=== PATIENT | female | born 1940 ===

== ENCOUNTER 2018-08-17 19:17 | Emergency (ER) | payer MEDICARE, OTHER ==
[2018-08-17] MEDS ORDERED: Sodium Chloride 0.9% 10 ML Syringe FLUSH PRN (19:28)
[2018-08-17] MEDS ORDERED: Sodium Chloride 0.9% 2.5 ML Syringe FLUSH PRN (19:28)
[2018-08-17] MEDS ORDERED: Ondansetron 4 MG/2 ML SDV IVPUSH ONE (19:40)
[2018-08-17] MEDS ORDERED: Pantoprazole 40 MG Vial IVPUSH ONE (19:40)
[2018-08-17] MEDS ORDERED: Sodium Chloride 0.9% 1,000 ML IV ONE (19:40)
--- NOTE | 2018-08-17 19:44 | EDM.PDOC ---
ED HPI GENERAL MEDICAL PROBLEM - General Chief Complaint: Gastrointestinal Problem Stated Complaint: SICK TO STOMACH, VOMITING Time Seen by Provider: 08/17/18 19:28 - History of Present Illness INITIAL COMMENTS - FREE TEXT/NARRATIVE: HISTORY AND PHYSICAL: History of present illness: The patient is a 78-year-old female who follows at [facility] with Radha Vogt and has a history of hypertension as well as a cholecystectomy and appendectomy and presents with issues that started last evening. She said that last night she felt like her eyes were very blurry and she use artificial tears which made it better. She did not have a headache or dizziness and no vomiting but did have nausea with that. She said she didn't have any drainage or itchiness from her eyes and that she woke today and throughout the day she her nausea has increased. She says that after she eats she feels much more nauseated she is not having chest pain or shortness of breath or fevers. She has no urinary complaints and she says that she only had a very small bowel movement over the last 2 days. She has no significant GI history but does have the above surgeries. She says she feels a little bit bloated and she did not take anything [id number] for these symptoms. She says that the blurriness of her eyes comes and goes but is not persistent and she denies any neck or back pain. The patient says she's never had any colon issues and she actually did not vomit but came very close and had some gagging and dry heaving. On my history taking the patient is somewhat scattered and is not very direct in answering my questions so it is challenging to determine this sequence of events. She does say that all of her symptoms worsen after she eats anything so she has not eaten very much today at all and had not had much fluids. The patient denies any midline or lumbar back pain and has no flank pain Patient added later on a repeat evaluation that she does have kidney disease which she has aware of and is followed by her provider in the clinic Review of systems: As per history of present illness and below otherwise all systems reviewed and negative. Past medical history: As per history of present illness and as reviewed below otherwise noncontributory. Surgical history: As per history of present illness and as reviewed below otherwise noncontributory. Social history: No reported history of drug or alcohol abuse. Family history: As per history of present illness and as reviewed below otherwise noncontributory. Physical exam: General: Well-developed well-nourished overweight female who is nontoxic and vital signs are noted by me HEENT: Atraumatic, normocephalic, pupils reactive, sclerae are minimally injected and there is no drainage negative for conjunctival pallor or scleral icterus, mucous membranes tacky throat clear, neck supple, nontender, trachea midline. Lungs: Clear to auscultation, breath sounds equal bilaterally, chest nontender. Heart: S1S2, regular in rhythm no overt murmurs Abdomen: Soft, nondistended, nontender. Bowel sounds are very hypoactive and there is tympany on percussion of the upper abdomen without rebound or guarding. Negative for masses or hepatosplenomegaly. Negative for costovertebral tenderness. Pelvis: Stable nontender. Genitourinary: Deferred. Rectal: Deferred. Extremities: Atraumatic, negative for cords or calf pain. Neurovascular unremarkable. It is noted that the patient has missing digits 2 through 5 on the right hand which is due to an old trauma and she has a very small wound at her left lower Achilles area on the right heel which she says has not been healing and is not new or changed and there is no drainage or erythema nor tenderness. Neuro: Awake, alert, oriented. Cranial nerves II through XII unremarkable. Cerebellum unremarkable. Motor and sensory unremarkable throughout. Exam nonfocal. Diagnostics: EKG CBC CMP amylase lipase H. pylori UA with reflex chest x-ray CT scan of the head abdomen and pelvis lactic acid troponin Therapeutics: IV O2 monitor IV fluids Protonix Zofran The patient has not had any nausea or vomiting here in the ED and has had actually no complaints. She is aware of her diverticulosis in the colon as well as the renal cysts and the lumbar DJD changes. We are currently in the process of obtaining a urine sample and pending those results we'll plan for discharge home. I have stressed the need to follow-up with her provider in the clinic as the symptoms are very vague. I will give her Zofran for home Impression: Nausea and nonspecific malaise Definitive disposition and diagnosis as appropriate pending reevaluation and review of above. - Related Data Allergies Allergy/AdvReac Type Severity Reaction Status Date / Time codeine Allergy Shortness Verified 09/19/15 18:23 of Breath nitrofurantoin Allergy Cannot Verified 09/19/15 18:23 macrocrystalline Remember [From Macrodantin] Sulfa (Sulfonamide Allergy Cannot Verified 09/19/15 18:23 Antibiotics) Remember Home Meds: Home Meds Levothyroxine 25 mcg PO DAILY 08/17/18 [History] Metoprolol Succinate [Toprol XL] 25 mg PO DAILY 08/17/18 [History] Ranitidine HCl [Ranitidine] 150 mg PO DAILY 08/17/18 [History] hydrALAZINE [Apresoline] 10 mg PO DAILY 08/17/18 [History] Past Medical History HEENT History: Reports: Impaired Vision Cardiovascular History: Reports: Heart Murmur, High Cholesterol, Hypertension Respiratory History: Reports: Asthma, COPD Gastrointestinal History: Reports: GERD Genitourinary History: Reports: Renal Calculus PHARMACY GRAD INTERN History: Reports: Musculoskeletal History: Reports: Amputation, Arthritis, Other (See Below) Other Musculoskeletal History: Right fingers amputation - Past Surgical History HEENT Surgical History: Reports: Adenoidectomy, Tonsillectomy Respiratory Surgical History: Reports: Lung Biopsies, Lung Resection GI Surgical History: Reports: Cholecystectomy Endocrine Surgical History: Reports: Thyroidectomy Social & Family History - Family History Family Medical History: Noncontributory ED ROS GENERAL - Review of Systems Review Of Systems: ROS reveals no pertinent complaints other than HPI. ED EXAM, GENERAL - Physical Exam Exam: See Below (see Dictation) Course - Vital Signs Last Recorded V/S: Last Vital Signs Temp 37.4 C 08/17/18 21:27 Pulse 84 08/17/18 21:27 Resp 22 H 08/17/18 21:27 BP 153/54 H 08/17/18 21:27 Pulse Ox 94 L 08/17/18 21:27 - Orders/Labs/Meds Orders: Active Orders 24 hr Category Date Time Status Cardiac Monitoring [RC] . DIRECTED Care 08/17/18 19:29 Active EKG Documentation Completion [RC] STAT Care 08/17/18 19:29 Active Oxygen Therapy, ED [RC] ASDIRECTED Care 08/17/18 19:29 Active Pulse Oximetry [RC] ASDIRECTED Care 08/17/18 19:29 Active Sodium Chloride 0.9% [Saline Flush] Med 08/17/18 19:28 Active 10 ml FLUSH ASDIRECTED PRN Sodium Chloride 0.9% [Saline Flush] Med 08/17/18 19:28 Active 2.5 ml FLUSH ASDIRECTED PRN Saline Lock Insert [OM.PC] Stat Oth 08/17/18 19:28 Ordered Medication Orders Sodium Chloride (Saline Flush) 10 ml FLUSH ASDIRECTED PRN PRN Reason: Keep Vein Open Sodium Chloride (Saline Flush) 2.5 ml FLUSH ASDIRECTED PRN PRN Reason: Keep Vein Open Labs: Laboratory Tests 08/17/18 08/17/18 08/17/18 Range/Units 19:45 19:45 19:45 WBC 12.77 H (4.0-11.0) K/uL RBC 4.88 (4.30-5.90) M/uL Hgb 15.6 (12.0-16.0) g/dL Hct 48.6 H (36.0-46.0) % MCV 99.6 H (80.0-98.0) fL MCH 32.0 (27.0-32.0) pg MCHC 32.1 (31.0-37.0) g/dL RDW Std Deviation 54.8 (28.0-62.0) fl RDW Coeff of Marco Antonio 15 (11.0-15.0) % Plt Count 201 (150-400) K/uL MPV 9.80 (7.40-12.00) fL Neut % (Auto) 88.4 H (48.0-80.0) % Lymph % (Auto) 4.0 L (16.0-40.0) % [place] % (Auto) 7.1 (0.0-15.0) % Eos % (Auto) 0.3 (0.0-7.0) % Baso % (Auto) 0.2 (0.0-1.5) % Neut # (Auto) 11.3 H (1.4-5.7) K/uL Lymph # (Auto) 0.5 L (0.6-2.4) K/uL [place] # (Auto) 0.9 H (0.0-0.8) K/uL Eos # (Auto) 0.0 (0.0-0.7) K/uL Baso # (Auto) 0.0 (0.0-0.1) K/uL Nucleated RBC % 0.0 /100WBC Nucleated RBCs # 0 K/uL Lactate 1.6 (0.20-2.00) mmol/L Sodium 137 (136-145) mmol/L Potassium 4.5 (3.5-5.1) mmol/L Chloride 103 (98-107) mmol/L Carbon Dioxide 26.6 (21.0-32.0) mmol/L BUN 24 H (7.0-18.0) mg/dL Creatinine 2.1 H (0.6-1.0) mg/dL Est Cr Clr Drug Dosing TNP Estimated GFR (MDRD) 22.8 ml/min Glucose 144 H (74-106) mg/dL Calcium 8.7 (8.5-10.1) mg/dL Total Bilirubin 0.9 (0.2-1.0) mg/dL AST 25 (15-37) IU/L ALT 32 (14-63) IU/L Alkaline Phosphatase 67 (46-116) U/L Troponin I < 0.050 (0.000-0.056) ng/mL Total Protein 7.0 (6.4-8.2) g/dL Albumin 3.3 L (3.4-5.0) g/dL Globulin 3.7 (2.6-4.0) g/dL Albumin/Globulin Ratio 0.9 (0.9-1.6) Amylase 42 (25-115) U/L Lipase 75 (73-393) U/L Urine Color Urine Appearance Urine pH (5.0-8.0) Ur Specific [place] (1.001-1.035) Urine Protein (NEGATIVE) mg/dL Urine Glucose (UA) (NEGATIVE) mg/dL Urine Ketones (NEGATIVE) mg/dL Urine Occult Blood (NEGATIVE) Urine Nitrite (NEGATIVE) Urine Bilirubin (NEGATIVE) Urine Urobilinogen (<2.0) EU/dL Ur Leukocyte Esterase (NEGATIVE) Urine RBC (0-2/HPF) Urine WBC (0-5/HPF) Ur Epithelial Cells (NONE-FEW) Urine Bacteria (NEGATIVE) H. pylori IgG Antibody (NEG) 08/17/18 08/17/18 Range/Units 19:45 21:45 WBC (4.0-11.0) K/uL RBC (4.30-5.90) M/uL Hgb (12.0-16.0) g/dL Hct (36.0-46.0) % MCV (80.0-98.0) fL MCH (27.0-32.0) pg MCHC (31.0-37.0) g/dL RDW Std Deviation (28.0-62.0) fl RDW Coeff of [place] (11.0-15.0) % Plt Count (150-400) K/uL MPV (7.40-12.00) fL Neut % (Auto) (48.0-80.0) % Lymph % (Auto) (16.0-40.0) % [place] % (Auto) (0.0-15.0) % Eos % (Auto) (0.0-7.0) % Baso % (Auto) (0.0-1.5) % Neut # (Auto) (1.4-5.7) K/uL Lymph # (Auto) (0.6-2.4) K/uL [place] # (Auto) (0.0-0.8) K/uL Eos # (Auto) (0.0-0.7) K/uL Baso # (Auto) (0.0-0.1) K/uL Nucleated RBC % /100WBC Nucleated RBCs # K/uL Lactate (0.20-2.00) mmol/L Sodium (136-145) mmol/L Potassium (3.5-5.1) mmol/L Chloride (98-107) mmol/L Carbon Dioxide (21.0-32.0) mmol/L BUN (7.0-18.0) mg/dL Creatinine (0.6-1.0) mg/dL Est Cr Clr Drug Dosing Estimated GFR (MDRD) ml/min Glucose (74-106) mg/dL Calcium (8.5-10.1) mg/dL Total Bilirubin (0.2-1.0) mg/dL AST (15-37) IU/L ALT (14-63) IU/L Alkaline Phosphatase (46-116) U/L Troponin I (0.000-0.056) ng/mL Total Protein (6.4-8.2) g/dL Albumin (3.4-5.0) g/dL Globulin (2.6-4.0) g/dL Albumin/Globulin Ratio (0.9-1.6) Amylase (25-115) U/L Lipase (73-393) U/L Urine Color YELLOW Urine Appearance CLEAR Urine pH 6.0 (5.0-8.0) Ur Specific [place] 1.020 (1.001-1.035) Urine Protein 100 H (NEGATIVE) mg/dL Urine Glucose (UA) NEGATIVE (NEGATIVE) mg/dL Urine Ketones NEGATIVE (NEGATIVE) mg/dL Urine Occult Blood NEGATIVE (NEGATIVE) Urine Nitrite NEGATIVE (NEGATIVE) Urine Bilirubin NEGATIVE (NEGATIVE) Urine Urobilinogen 0.2 (<2.0) EU/dL Ur Leukocyte Esterase NEGATIVE (NEGATIVE) Urine RBC 0-2 (0-2/HPF) Urine WBC 0-1 (0-5/HPF) Ur Epithelial Cells FEW (NONE-FEW) Urine Bacteria RARE (NEGATIVE) H. pylori IgG Antibody NEGATIVE (NEG) Meds: Medications Generic Name Dose Route Start Last Admin Trade Name Freq PRN Reason Stop Dose Admin Sodium Chloride 10 ml 08/17/18 19:28 Saline Flush FLUSH ASDIRECTED PRN Keep Vein Open Sodium Chloride 2.5 ml 08/17/18 19:28 Saline Flush FLUSH ASDIRECTED PRN Keep Vein Open Discontinued Medications Generic Name Dose Route Start Last Admin Trade Name Freq PRN Reason Stop Dose Admin Sodium Chloride 1,000 mls @ 999 mls/hr 08/17/18 19:40 08/17/18 19:58 Normal Saline IV 08/17/18 20:40 999 mls/hr STAT ONE Administration Sterile Water Confirm 08/17/18 19:52 08/17/18 19:59 Sterile Water For Injection Administered 08/17/18 19:53 40 mls/hr Dose Administration 20 mls @ as directed .ROUTE .STK-MED ONE Ondansetron HCl 4 mg 08/17/18 19:40 08/17/18 19:59 Zofran IVPUSH 08/17/18 19:41 4 mg ONETIME ONE Administration Pantoprazole Sodium 80 mg 08/17/18 19:40 08/17/18 19:59 Protonix Iv IVPUSH 08/17/18 19:41 80 mg .BOLUS ONE Administration Sodium Chloride 40 ml 08/17/18 19:50 08/17/18 19:59 Normal Saline IV 08/17/18 19:51 Not Given STAT STA Departure - Departure Time of Disposition: 22:15 Disposition: Home, Self-Care 01 Condition: Good Clinical Impression: Nausea, Malaise and fatigue - Discharge Information Referrals: PCP,Unknown [Primary Care Provider] - Forms: ED Department Discharge Additional Instructions: The following information is given to patients seen in the emergency department who are being discharged to home. This information is to outline your options for follow-up care. We provide all patients seen in our emergency department with a follow-up referral. The need for follow-up, as well as the timing and circumstances, are variable depending upon the specifics of your emergency department visit. If you don't have a primary care physician on staff, we will provide you with a referral. We always advise you to contact your personal physician following an emergency department visit to inform them of the circumstance of the visit and for follow-up with them and/or the need for any referrals to a consulting specialist. The emergency department will also refer you to a specialist when appropriate. This referral assures that you have the opportunity for followup care with a specialist. All of these measure are taken in an effort to provide you with optimal care, which includes your followup. Under all circumstances we always encourage you to contact your private physician who remains a resource for coordinating your care. When calling for followup care, please make the office aware that this follow-up is from your recent emergency room visit. If for any reason you are refused follow-up, please contact the [facility] emergency department at and ask to speak to the emergency department charge nurse. [facility] Primary care- Internal Medicine and Family [address] [id number] Please contact her provider at [facility] in the morning and discuss with her follow-up care and/or discuss this with one of our providers in the clinic. Use Zofran as needed for nausea and push hydration. Return to ER as needed and as discussed - My Orders Last 24 Hours: My Active Orders 08/17/18 19:28 Sodium Chloride 0.9% [Saline Flush] 10 ml FLUSH ASDIRECTED PRN Sodium Chloride 0.9% [Saline Flush] 2.5 ml FLUSH ASDIRECTED PRN Saline Lock Insert [OM.PC] Stat 08/17/18 19:29 Cardiac Monitoring [RC] . DIRECTED EKG Documentation Completion [RC] STAT Oxygen Therapy, ED [RC] ASDIRECTED Pulse Oximetry [RC] ASDIRECTED - Assessment/Plan Last 24 Hours: My Active Orders 08/17/18 19:28 Sodium Chloride 0.9% [Saline Flush] 10 ml FLUSH ASDIRECTED PRN Sodium Chloride 0.9% [Saline Flush] 2.5 ml FLUSH ASDIRECTED PRN Saline Lock Insert [OM.PC] Stat 08/17/18 19:29 Cardiac Monitoring [RC] . DIRECTED EKG Documentation Completion [RC] STAT Oxygen Therapy, ED [RC] ASDIRECTED Pulse Oximetry [RC] ASDIRECTED
[2018-08-17] MEDS ORDERED: Sodium Chloride 0.9% 10 ML SDV IV STA (19:50)
[2018-08-17] MEDS ORDERED: Water For Injection, Sterile 20 ML ONE (19:52)
--- NOTE | 2018-08-17 20:16 | CR ---
Indication: Pain. Shortness breath. Technique: Single AP portable view of the chest was obtained. Comparison: None Findings: A calcified implant is identified on the right. Postoperative changes of the right humerus are identified. The heart is borderline in size. No focal infiltrate, pleural effusion, or pneumothorax is identified. Impression: Borderline cardiomegaly. Dictated by Reny Singh MD @ Aug 17 2018 8:15PM Signed by Dr. Reny Singh @ Aug 17 2018 8:15PM
[2018-08-17 20:22] LABS: CHLORIDE,CL 103 mmol/L (98-107); SODIUM,NA 137 mmol/L (136-145)
--- NOTE | 2018-08-17 21:28 | CT ---
INDICATION: Right upper quadrant pain. COMPARISON: COMPARISON DATE TECHNIQUE: CT examination of the abdomen and pelvis was performed without contrast enhancement using 3 mm thick axial sections from the lung bases through the pubic symphysis. Oral contrast was not administered. Please note that all CT scans at this facility use dose modulation, iterative reconstruction, and/or weight-based dosing when appropriate to reduce radiation dose to as low as reasonably achievable. FINDINGS: In the abdomen, the unenhanced liver, spleen, pancreas, and adrenals are normal in appearance. The right kidney is moderately small, representing moderate renal atrophy. There is a small high density structure arising from the lower pole measuring 10 millimeters in diameter consistent with a high-density cyst. The left kidney has a 6 millimeter protrusion from the posterior interpolar region consistent with a small cyst. The gallbladder is absent, consistent with cholecystectomy. There is no sign of biliary ductal dilatation. The abdominal aorta is normal in caliber with no sign of dilatation. There is no sign of retroperitoneal mass or adenopathy. The stomach and loops of small bowel in the abdomen are normal in appearance. There is prominent diverticulosis of the descending colon and colon in the splenic flexure. There is mild diverticulosis of the transverse and ascending colon. In the pelvis, the appendix is nonvisualized, but there is no sign of an inflammatory process in the area of the appendix. There is prominent sigmoid diverticulosis without evidence of diverticulitis. The loops of small bowel and colon in the pelvis are otherwise normal in appearance. The uterus and adnexal regions are normal in appearance. The urinary bladder is normal in appearance. There is no sign of pelvic or inguinal mass or adenopathy. There is mild linear atelectasis in the posterior left lung base. There is mild eventration of the left hemidiaphragm. The right lung base is clear. There are old fractures of the right posterior inferior ribs. There is mild scoliosis of the lumbar spine convex towards the left. There is moderate L4-5 disc degenerative disease. There is mild L3-4 and L2-3 disc degenerative disease. IMPRESSION: Nothing seen in the right upper quadrant on CT of the abdomen to explain patient`s right upper quadrant pain. Status post cholecystectomy with no sign of biliary ductal dilatation. Right renal atrophy with no sign of hydronephrosis or hydroureter. No sign of calculi. Mild diverticulosis of the colon in the right upper quadrant without diverticulitis. CT of the abdomen shows prominent diverticulosis of the left colon with no sign of diverticulitis. A few small seen in both kidneys. CT of the pelvis shows prominent sigmoid diverticulosis with no sign of diverticulitis. Please note that all CT scans at this facility use dose modulation, iterative reconstruction, and/or weight-based dosing when appropriate to reduce radiation dose to as low as reasonably achievable. Dictated by Shon Ruiz MD @ Aug 17 2018 9:15PM Signed by Dr. Shon Ruiz @ Aug 17 2018 9:26PM
[2018-08-17 21:29] VITALS: BP 153/54
--- NOTE | 2018-08-17 21:30 | CT ---
INDICATION: Fall 1 day prior TECHNIQUE: CT head without contrast. COMPARISON: None FINDINGS: CSF spaces: Within normal limits for age. Brain parenchyma: The thompson-white differentiation is normal. No sign of mass, hemorrhage, or midline shift. Periventricular white matter changes consistent with chronic microvascular disease. Diffuse volume loss. Skull base and calvarium: The visualized paranasal sinuses and mastoid air cells demonstrate no acute or significant findings. The visualized orbits are grossly unremarkable. No skull fractures. IMPRESSION: No evidence of acute intracranial trauma. Periventricular white matter changes consistent chronic microvascular disease. Diffuse volume loss. Dictated by Kee Casiano MD @ 08/17/2018 9:29:41 PM Please note that all CT scans at this facility use dose modulation, iterative reconstruction, and/or weight-based dosing when appropriate to reduce radiation dose to as low as reasonably achievable. Dictated by: Kee Casiano MD @ 08/17/2018 21:29:46 (Electronically Signed)
== END 2018-08-17 22:35 | disposition home or self-care (01) ==
LOC: MW.ED 19:17
DX: R11.0 Nausea (principal); R53.81 Other malaise; R53.83 Other fatigue; I10 Essential (primary) hypertension; E78.00 Pure hypercholesterolemia, unspecified; J44.9 Chronic obstructive pulmonary disease, unspecified; K21.9 Gastro-esophageal reflux disease without esophagitis; Z88.5 Allergy status to narcotic agent; Z88.2 Allergy status to sulfonamides; Z88.8 Allergy status to other drugs, medicaments and biological substances; Z79.899 Other long term (current) drug therapy
CPT/HCPCS: 36415; 70450; 71045; 74176; 80053; 81001; 82150; 83605; 83690; 84484; 85025; 86677; 93005; 96361; 96374; 96375; 99284; C9113; J2405; J7040; 99283

== ENCOUNTER 2019-03-14 17:51 | Observation (INO) | payer MEDICARE ==
[2019-03-14] MEDS ORDERED: Aspirin 81 MG Tab.Chew PO ONE (18:42)
[2019-03-14] MEDS ORDERED: Nitroglycerin 0.4 MG Tab.SL SL PRN (18:42)
--- NOTE | 2019-03-14 19:20 | EDM.PDOC ---
ED [facility] GENERAL MEDICAL PROBLEM - General Chief Complaint: Chest Pain Stated Complaint: CHEST PAINS Time Seen by Provider: 03/14/19 18:28 - History of Present Illness INITIAL COMMENTS - FREE TEXT/NARRATIVE: HPI 78-year-old female with extensive smoking history, HTN, and COPD presents for evaluation of one day of poorly characterized left-sided substernal chest pain that may have a radiation complement to her neck, pain is ongoing, poorly characterize, appears to be moderate. Patient notes that pain is worse with deep inspiration and appears to be exacerbated by physical activity. does not use oxygen at home. M/S/F/SocHx notable for: please see HPI; remainder reviewed with patient and in chart. ROS: Negative constitutional, eye, cardiovascular, pulmonary, GI, , MSK, skin , neurologic, psychiatric, endocrine unless noted in the HPI. Exam HR 78, RR 20, BP 146/40, T 37.1C, SaO2 89% on room air. Gen: Pleasant, non-toxic appearing, resting comfortably. HEENT: NC, AT, PEERL, EOMI. Resp: faint scattered expiratory wheezing throughout all lung mckenzie, otherwise clear to auscultation bilaterally, normal work of breathing. Card: RRR with no M/R/G, no crackles in lung bases, no pedal edema, no JVD appreciated. GI: NT/ND Vascular: Both ankles, calves, and thighs of equal size, no calf tenderness to palpation bilaterally. MSK: No chest wall TTP. No visible deformities, strength and tone WNL. Skin: Normal color with no visible lesions. Neuro: AO x 3, no facial asymmetry, vision and hearing WNL. Psych: Mood and affect appropriate. Labs / Imaging (pertinent): EKG: SR 70 bpm, 0.5-[address] segment depression in leads II, III, and aVF, nonspecific ST segment elevation in lead I, aVL, no further ST segment elevations or depressions, no discordant T wave inversions. No ND segment elevations or depressions. MDM Previous chart, nursing note, and vitals reviewed. A: 78-year-old female with extensive smoking history, HTN, and COPD presents for evaluation of one day of poorly characterized left-sided substernal chest pain that may have a radiation complement to her neck, pain is ongoing, poorly characterize, appears to be moderate. DDx and Evaluation: significant concern for ACS given the risk factors and ST segment changes, aspirin given, nitroglycerin held given possible inferior involvement. Chest x-ray, labs (CBC, CMP, lipase, troponin, d-dimer) in a right- sided EKG were ordered and pending at time of patient care transfer to Dr. Sawant, the [facility] overnight ED physician. Also remaining on the differential are unstable angina, pericarditis is felt to be effectively excluded based on ECG, no clear features suggestive of myocarditis, however further evaluation is pending. Similarly, dissection, PE, pneumonia, and a G.I. etiology have yet to be excluded. Impression: Chest Pain. - Related Data Allergies Allergy/AdvReac Type Severity Reaction Status Date / Time codeine Allergy Shortness Verified 03/14/19 18:18 of Breath nitrofurantoin Allergy Cannot Verified 03/14/19 18:18 macrocrystalline Remember [From Macrodantin] Sulfa (Sulfonamide Allergy Cannot Verified 03/14/19 18:18 Antibiotics) Remember Home Meds: Home Meds Levothyroxine 25 mcg PO DAILY 08/17/18 [History] Metoprolol Succinate [Toprol XL] 25 mg PO DAILY 08/17/18 [History] Ranitidine HCl [Ranitidine] 150 mg PO DAILY 08/17/18 [History] hydrALAZINE [Apresoline] 10 mg PO DAILY 08/17/18 [History] Past Medical History HEENT History: Reports: Impaired Vision Cardiovascular History: Reports: Heart Murmur, High Cholesterol, Hypertension Respiratory History: Reports: Asthma, COPD Gastrointestinal History: Reports: GERD Genitourinary History: Reports: Renal Calculus [employer]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: Musculoskeletal History: Reports: Amputation, Arthritis, Other (See Below) Other Musculoskeletal History: Right fingers amputation - Infectious Disease History Infectious Disease History: Reports: None - Past Surgical History HEENT Surgical History: Reports: Adenoidectomy, Tonsillectomy Respiratory Surgical History: Reports: Lung Biopsies, Lung Resection GI Surgical History: Reports: Cholecystectomy Endocrine Surgical History: Reports: Thyroidectomy Social & Family History - Family History Family Medical History: Noncontributory - Tobacco Use Smoking Status *Q: Unknown Ever Smoked - Caffeine Use Caffeine Use: Reports: None - Recreational Drug Use Recreational Drug Use: No ED ROS GENERAL - Review of Systems Review Of Systems: See Below ED EXAM, GENERAL - Physical Exam Exam: See Below Course - Vital Signs Last Recorded V/S: Last Vital Signs Temp 37.1 C 03/14/19 18:19 Pulse 78 03/14/19 18:19 Resp 20 03/14/19 18:19 BP 146/40 H 03/14/19 18:19 Pulse Ox 89 L 03/14/19 18:19 - Orders/Labs/Meds Orders: Active Orders 24 hr Category Date Time Status EKG 12 Lead [EKG Documentation Completion] [RC] STAT Care 03/14/19 18:42 Ordered CXR [Chest 2V] [CR] Stat Exams 03/14/19 18:28 Ordered CBC WITH AUTO DIFF [HEME] Stat Lab 03/14/19 18:28 Ordered CMP [COMPREHENSIVE METABOLIC PN,CMP] [CHEM] Stat Lab 03/14/19 18:28 Ordered D Dimer [D-DIMER QUANTITATIVE] [COAG] Stat Lab 03/14/19 18:42 Ordered LIPASE [CHEM] Stat Lab 03/14/19 18:28 Ordered TROPONIN I [CHEM] Stat Lab 03/14/19 18:28 Ordered Meds: Medications Discontinued Medications Generic Name Dose Route Start Last Admin Trade Name Freq PRN Reason Stop Dose Admin Aspirin 324 mg 03/14/19 18:42 Aspirin PO 03/14/19 18:43 ONETIME ONE Nitroglycerin 0.4 mg 03/14/19 18:42 Nitrostat SL Q5M PRN Chest Pain Departure - Departure Time of Disposition: 19:18 Disposition: Still A Patient 30 Clinical Impression: Chest pain - Discharge Information Referrals: Radha Vogt MD [Primary Care Provider] - Sepsis Event Note - Evaluation Sepsis Screening Result: No Definite Risk - Focused Exam Vital Signs: Vital Signs Temp Pulse Resp BP Pulse Ox 03/14/19 18:19 37.1 C 78 20 146/40 H 89 L Date Exam was Performed: 03/14/19 Time Exam was Performed: 19:18 - My Orders Last 24 Hours: My Active Orders 03/14/19 18:28 CXR [Chest 2V] [CR] Stat CBC WITH AUTO DIFF [HEME] Stat CMP [COMPREHENSIVE METABOLIC PN,CMP] [CHEM] Stat LIPASE [CHEM] Stat TROPONIN I [CHEM] Stat 03/14/19 18:42 EKG 12 Lead [EKG Documentation Completion] [RC] STAT D Dimer [D-DIMER QUANTITATIVE] [COAG] Stat - Assessment/Plan Last 24 Hours: My Active Orders 03/14/19 18:28 CXR [Chest 2V] [CR] Stat CBC WITH AUTO DIFF [HEME] Stat CMP [COMPREHENSIVE METABOLIC PN,CMP] [CHEM] Stat LIPASE [CHEM] Stat TROPONIN I [CHEM] Stat 03/14/19 18:42 EKG 12 Lead [EKG Documentation Completion] [RC] STAT D Dimer [D-DIMER QUANTITATIVE] [COAG] Stat
[2019-03-14] MEDS ORDERED: Ondansetron 4 MG/2 ML SDV ONE (19:46)
[2019-03-14] MEDS ORDERED: Morphine 4 MG/ML Syringe ONE (19:46)
[2019-03-14] MEDS ORDERED: Ondansetron 4 MG/2 ML SDV IVPUSH ONE ×2 (19:46→21:24)
[2019-03-14] MEDS ORDERED: Morphine 4 MG/ML Syringe IVPUSH ONE ×2 (19:47→21:24)
--- NOTE | 2019-03-14 20:28 | CR ---
INDICATION: Chest pain. TECHNIQUE: PA and lateral chest x-ray. FINDINGS: No comparison films. Pulmonary vascularity in the lungs especially in the central and right upper lobe suggesting mild pulmonary venous congestion. Peripherally calcified breast implant on the right. Mild hazy opacity in the right mid lung nonspecific. Heart is mildly enlarged. Moderate aortic calcification. Plate and screw fixation across an old fracture of the right humerus partially visualized. Remainder negative. Dictated by Twan Cheek MD @ Mar 14 2019 8:27PM Signed by Dr. Twan Cheek @ Mar 14 2019 8:28PM
[2019-03-14 20:40] LABS: BLOOD UREA NITROGEN,BUN 44 mg/dL (7.0-18.0); CARBON DIOXIDE,CO2 24.5 mmol/L (21.0-32.0); CHLORIDE,CL 97 mmol/L (98-107); GLUCOSE RANDOM 114 mg/dL (74-106); LIPASE 171 U/L (73-393); POTASSIUM,K 4.1 mmol/L (3.5-5.1); SODIUM,NA 137 mmol/L (136-145)
--- NOTE | 2019-03-14 23:05 | PCM.HP.2 ---
H&P History of Present Illness - General Date of Service: 03/14/19 Admit Problem/Dx: Admission Diagnosis/Problem Admission Diagnosis/Problem Chest pain - History of Present Illness Initial Comments - Free Text/Narative: 78 yo female with pmh of CKD, COPD, and hypertension who presents to the ED with several day complaint of chest pain. The pain is in her left shoulder and radiates to the sternum. She reports worsening pain with deep inspiration. She denies any shortness of breath or fevers. - Related Data Allergies/Adverse Reactions: Allergies Allergy/AdvReac Type Severity Reaction Status Date / Time codeine Allergy Shortness Verified 03/14/19 22:10 of Breath nitrofurantoin Allergy Cannot Verified 03/14/19 22:10 macrocrystalline Remember [From Macrodantin] Sulfa (Sulfonamide Allergy Cannot Verified 03/14/19 22:10 Antibiotics) Remember tramadol Allergy Vomiting Verified 03/15/19 04:12 trimethoprim Allergy Cannot Verified 03/14/19 22:10 Remember Home Medications: Home Meds Albuterol Sulfate [Albuterol Sulfate Hfa] 2 puff INH Q4H PRN 03/14/19 [History] Allopurinol [Zyloprim] 100 mg PO DAILY 03/14/19 [History] Budesonide/Formoterol Fumarate [Symbicort 160-4.5 Mcg Inhaler] 2 inh INH BID 04/02 [History] Colchicine 0.6 mg PO DAILY PRN 03/14/19 [History] Cyanocobalamin (Vitamin B-12) [Cyanocobalamin Injection] 1,000 mcg IJ Q14D 03/14 [History] Diltiazem HCl [Diltiazem 24Hr ER] 120 mg PO DAILY 03/14/19 [History] Famotidine [Pepcid] 10 mg PO DAILY PRN 03/14/19 [History] Furosemide 40 mg PO DAILY 03/14/19 [History] Gabapentin [Neurontin] 400 mg PO BEDTIME 03/14/19 [History] Levalbuterol HCl 1.25 mg NEB Q6HR PRN 03/14/19 [History] Levothyroxine [Synthroid] 100 mcg PO ACBREAKFAST 03/14/19 [History] Metoprolol Tartrate 25 mg PO BID 03/14/19 [History] Potassium Chloride [Klor-Con M20] 20 meq PO DAILY 03/14/19 [History] diphenhydrAMINE [Benadryl] 25 mg PO BID PRN 03/14/19 [History] hydrALAZINE [Apresoline] 75 mg PO TID 03/14/19 [History] Past Medical History HEENT History: Reports: Impaired Vision Cardiovascular History: Reports: Heart Murmur, High Cholesterol, Hypertension Respiratory History: Reports: Asthma, COPD Gastrointestinal History: Reports: GERD Genitourinary History: Reports: 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: Musculoskeletal History: Reports: Amputation, Arthritis, Other (See Below) Other Musculoskeletal History: Right fingers amputation - Infectious Disease History Infectious Disease History: Reports: None - Past Surgical History HEENT Surgical History: Reports: Adenoidectomy, Tonsillectomy Respiratory Surgical History: Reports: Lung Biopsies, Lung Resection GI Surgical History: Reports: Cholecystectomy Endocrine Surgical History: Reports: Thyroidectomy Social & Family History - Family History Family Medical History: Noncontributory - Tobacco Use Smoking Status *Q: Unknown Ever Smoked - Caffeine Use Caffeine Use: Reports: None - Recreational Drug Use Recreational Drug Use: No H&P Review of Systems - Review of Systems: Review Of Systems: Comprehensive ROS is negative, except as noted in HPI. Exam - Exam Exam: See Below - Vital Signs Vital Signs: Last Vital Signs Temp 37.1 C 03/14/19 18:19 Pulse 89 03/14/19 21:05 Resp 16 03/14/19 21:05 BP 136/58 L 03/14/19 21:05 Pulse Ox 92 L 03/14/19 21:05 Weight: 58.967 kg - Exam General: Alert, Oriented HEENT: Mucosa Moist & [place] Lungs: Clear to Auscultation, Normal Respiratory Effort Cardiovascular: Regular Rate, Regular Rhythm Extremities: Non-Tender, No Pedal Edema Skin: Warm, Dry, Intact - Patient Data Lab Results Last 24 hrs: Laboratory Results - last 24 hr 03/14/19 03/14/19 03/14/19 Range/Units 19:00 19:50 20:37 WBC 11.19 H (4.0-11.0) K/uL RBC 5.52 (4.30-5.90) M/uL Hgb 17.2 H (12.0-16.0) g/dL Hct 52.0 H (36.0-46.0) % MCV 94.2 (80.0-98.0) fL MCH 31.2 (27.0-32.0) pg MCHC 33.1 (31.0-37.0) g/dL RDW Std Deviation 60.8 (28.0-62.0) fl RDW Coeff of Marco Antonio 18 H (11.0-15.0) % Plt Count 252 (150-400) K/uL MPV 10.80 (7.40-12.00) fL Neut % (Auto) 83.7 H (48.0-80.0) % Lymph % (Auto) 6.5 L (16.0-40.0) % [place] % (Auto) 8.8 (0.0-15.0) % Eos % (Auto) 0.8 (0.0-7.0) % Baso % (Auto) 0.2 (0.0-1.5) % Neut # (Auto) 9.4 H (1.4-5.7) K/uL Lymph # (Auto) 0.7 (0.6-2.4) K/uL [place] # (Auto) 1.0 H (0.0-0.8) K/uL Eos # (Auto) 0.1 (0.0-0.7) K/uL Baso # (Auto) 0.0 (0.0-0.1) K/uL Nucleated RBC % 0.0 /100WBC Nucleated RBCs # 0 K/uL D-Dimer, Quantitative 2.39 H (0.0-0.50) mg/L FEU Sodium 137 (136-145) mmol/L Potassium 4.1 (3.5-5.1) mmol/L Chloride 97 L (98-107) mmol/L Carbon Dioxide 24.5 (21.0-32.0) mmol/L BUN 44 H (7.0-18.0) mg/dL Creatinine 2.5 H (0.6-1.0) mg/dL Est Cr Clr Drug Dosing 17.54 mL/min Estimated GFR (MDRD) 18.7 ml/min Glucose 114 H (74-106) mg/dL Calcium 10.4 H (8.5-10.1) mg/dL Total Bilirubin 1.2 H (0.2-1.0) mg/dL AST 20 (15-37) IU/L ALT 31 (14-63) IU/L Alkaline Phosphatase 102 (46-116) U/L Troponin I < 0.050 (0.000-0.056) ng/mL Total Protein 10.0 H (6.4-8.2) g/dL Albumin 4.7 (3.4-5.0) g/dL Globulin 5.3 H (2.6-4.0) g/dL Albumin/Globulin Ratio 0.9 (0.9-1.6) Lipase 171 (73-393) U/L Result Diagrams: 03/15/19 05:12 03/15/19 05:12 Sepsis Event Note - Evaluation Sepsis Screening Result: No Definite Risk - Focused Exam Vital Signs: Vital Signs Temp Pulse Resp BP Pulse Ox 03/14/19 21:05 89 16 136/58 L 92 L 03/14/19 19:59 86 16 166/66 H 94 L 03/14/19 19:01 94 L 03/14/19 19:00 99 20 85 L 03/14/19 18:19 37.1 C 78 20 146/40 H 89 L Date Exam was Performed: 03/15/19 Time Exam was Performed: 23:44 Problem List Initiated/Reviewed/Updated: Yes Orders Last 24hrs: Active Orders 24 hr Category Date Time Status Admission Status [Patient Status] [ADT] Stat ADT 03/14/19 21:02 Active EKG 12 Lead [EKG Documentation Completion] [RC] STAT Care 03/14/19 18:42 Active Lung Vent Perfusion [NM] Urgent Exams 03/14/19 22:57 Ordered Venous Doppler Lwr Ext Bi [US] Routine Exams 03/14/19 22:55 Ordered Assessment/Plan Comment:: 78 yo female who presents with chest pain. We will monitor overnight on telemetry and trend cardiac enzymes. D-dimer is elevated but clinical suspicion for VTE is low with low Wells score. Will Doppler extremities and consider VQ scan.
[2019-03-15] MEDS ORDERED: LEVALBUTEROL HCL 1.25 MG/3 ML NEB PRN (00:20)
[2019-03-15] MEDS ORDERED: Albuterol 6.7 GM Inhaler INH PRN ×2 (00:20→10:48)
[2019-03-15] MEDS: Heparin Sodium 5,000 Units/ML Vial SUBCUT SCH ×3 (01:09→15:44)
[2019-03-15 05:57] LABS: CARBON DIOXIDE,CO2 24.5 mmol/L (21.0-32.0); POTASSIUM,K 5.3 mmol/L (3.5-5.1)
[2019-03-15] MEDS ORDERED: hydrALAZINE 25 MG Tab**PTOM PO SCH (06:00)
[2019-03-15] MEDS: LEVOTHYROXINE 100 MCG PO SCH (06:35)
[2019-03-15] MEDS: Acetaminophen 325 MG Tab PO PRN ×2 (07:02→17:08)
[2019-03-15] MEDS ORDERED: Budesonide/Formoterol 160-4.5 MCG/Puff 6 GM Inhaler INH SCH (09:00)
[2019-03-15] MEDS ORDERED: Diltiazem 120 MG Cap.CD PO SCH ×2 (09:00→11:00)
[2019-03-15] MEDS ORDERED: Metoprolol Tartrate 25 MG Tab PO SCH (09:00)
--- NOTE | 2019-03-15 09:17 | PCM.PN ---
- General Info Date of Service: 03/15/19 Admission Dx/Problem (Free Text): Admission Diagnosis/Problem Admission Diagnosis/Problem Chest pain Subjective Update: Reports pain continues to L chest especially with deep breathing. No other concerns. Reports dressing to R foot is healing and recently had honey dressing placed, she is unsure how often this should be changed, She reports her daughter Hope would know. Functional Status: Reports: Tolerating Diet, Ambulating, Urinating - Review of Systems HEENT: Reports: No Symptoms. Denies: Headaches, Visual Changes Pulmonary: Reports: Pleuritic Chest Pain, Cough. Denies: Shortness of Breath, Sputum, Hemoptysis, Wheezing Cardiovascular: Reports: Chest Pain (with deep breathing.) Gastrointestinal: Reports: No Symptoms. Denies: Abdominal Pain, Nausea, Vomiting Musculoskeletal: Reports: No Symptoms Skin: Reports: No Symptoms Neurological: Reports: No Symptoms Psychiatric: Reports: No Symptoms - Patient Data Vitals - Most Recent: Last Vital Signs Temp 98.0 F 03/15/19 07:00 Pulse 87 03/15/19 08:27 Resp 18 03/15/19 07:00 BP 104/51 L 03/15/19 08:27 Pulse Ox 93 L 03/15/19 07:00 Weight - Most Recent: 58.967 kg I&O - Last 24 Hours: Intake & Output 03/14/19 03/15/19 03/15/19 22:59 06:59 14:59 Intake Total 200 Output Total 0 Balance 200 Lab Results Last 24 Hours: Laboratory Results - last 24 hr 03/14/19 03/14/19 03/14/19 Range/Units 19:00 19:50 20:37 WBC 11.19 H (4.0-11.0) K/uL RBC 5.52 (4.30-5.90) M/uL Hgb 17.2 H (12.0-16.0) g/dL Hct 52.0 H (36.0-46.0) % MCV 94.2 (80.0-98.0) fL MCH 31.2 (27.0-32.0) pg MCHC 33.1 (31.0-37.0) g/dL RDW Std Deviation 60.8 (28.0-62.0) fl RDW Coeff of Marco Antonio 18 H (11.0-15.0) % Plt Count 252 (150-400) K/uL MPV 10.80 (7.40-12.00) fL Neut % (Auto) 83.7 H (48.0-80.0) % Lymph % (Auto) 6.5 L (16.0-40.0) % [place] % (Auto) 8.8 (0.0-15.0) % Eos % (Auto) 0.8 (0.0-7.0) % Baso % (Auto) 0.2 (0.0-1.5) % Neut # (Auto) 9.4 H (1.4-5.7) K/uL Lymph # (Auto) 0.7 (0.6-2.4) K/uL [place] # (Auto) 1.0 H (0.0-0.8) K/uL Eos # (Auto) 0.1 (0.0-0.7) K/uL Baso # (Auto) 0.0 (0.0-0.1) K/uL Nucleated RBC % 0.0 /100WBC Nucleated RBCs # 0 K/uL D-Dimer, Quantitative 2.39 H (0.0-0.50) mg/L FEU Sodium 137 (136-145) mmol/L Potassium 4.1 (3.5-5.1) mmol/L Chloride 97 L (98-107) mmol/L Carbon Dioxide 24.5 (21.0-32.0) mmol/L BUN 44 H (7.0-18.0) mg/dL Creatinine 2.5 H (0.6-1.0) mg/dL Est Cr Clr Drug Dosing 17.54 mL/min Estimated GFR (MDRD) 18.7 ml/min Glucose 114 H (74-106) mg/dL Calcium 10.4 H (8.5-10.1) mg/dL Total Bilirubin 1.2 H (0.2-1.0) mg/dL AST 20 (15-37) IU/L ALT 31 (14-63) IU/L Alkaline Phosphatase 102 (46-116) U/L Troponin I < 0.050 (0.000-0.056) ng/mL Total Protein 10.0 H (6.4-8.2) g/dL Albumin 4.7 (3.4-5.0) g/dL Globulin 5.3 H (2.6-4.0) g/dL Albumin/Globulin Ratio 0.9 (0.9-1.6) Lipase 171 (73-393) U/L 03/15/19 03/15/19 03/15/19 Range/Units 02:00 05:12 05:12 WBC 12.08 H (4.0-11.0) K/uL RBC 5.10 (4.30-5.90) M/uL Hgb 15.6 (12.0-16.0) g/dL Hct 48.2 H (36.0-46.0) % MCV 94.5 (80.0-98.0) fL MCH 30.6 (27.0-32.0) pg MCHC 32.4 (31.0-37.0) g/dL RDW Std Deviation 61.3 (28.0-62.0) fl RDW Coeff of Marco Antonio 18 H (11.0-15.0) % Plt Count 231 (150-400) K/uL MPV 10.10 (7.40-12.00) fL Neut % (Auto) 74.6 (48.0-80.0) % Lymph % (Auto) 11.3 L (16.0-40.0) % [place] % (Auto) 13.2 (0.0-15.0) % Eos % (Auto) 0.7 (0.0-7.0) % Baso % (Auto) 0.2 (0.0-1.5) % Neut # (Auto) 9.0 H (1.4-5.7) K/uL Lymph # (Auto) 1.4 (0.6-2.4) K/uL [place] # (Auto) 1.6 H (0.0-0.8) K/uL Eos # (Auto) 0.1 (0.0-0.7) K/uL Baso # (Auto) 0.0 (0.0-0.1) K/uL Nucleated RBC % 0.0 /100WBC Nucleated RBCs # 0 K/uL D-Dimer, Quantitative (0.0-0.50) mg/L FEU Sodium 137 (136-145) mmol/L Potassium 5.3 H (3.5-5.1) mmol/L Chloride 102 (98-107) mmol/L Carbon Dioxide 24.5 (21.0-32.0) mmol/L BUN 47 H (7.0-18.0) mg/dL Creatinine 2.7 H (0.6-1.0) mg/dL Est Cr Clr Drug Dosing 15.07 mL/min Estimated GFR (MDRD) 17.1 ml/min Glucose 118 H (74-106) mg/dL Calcium 9.2 (8.5-10.1) mg/dL Total Bilirubin (0.2-1.0) mg/dL AST (15-37) IU/L ALT (14-63) IU/L Alkaline Phosphatase (46-116) U/L Troponin I < 0.050 (0.000-0.056) ng/mL Total Protein (6.4-8.2) g/dL Albumin (3.4-5.0) g/dL Globulin (2.6-4.0) g/dL Albumin/Globulin Ratio (0.9-1.6) Lipase (73-393) U/L Med Orders - Current: Current Medications Acetaminophen (Tylenol) 650 mg PO Q6H PRN PRN Reason: Pain Last Admin: 03/15/19 07:02 Dose: 650 mg Albuterol (Proventil Hfa) 0 gm INH Q4H PRN PRN Reason: Wheezing Budesonide/Formoterol Fumarate (Symbicort 160-4.5 Mcg) 0 gm INH BID ON LICENSE OF [facility] Last Admin: 03/15/19 08:39 Dose: 2 puff Diltiazem HCl (Cardizem Cd) 120 mg PO DAILY ON LICENSE OF [facility] Last Admin: 03/15/19 08:25 Dose: Not Given Heparin Sodium (Porcine) (Heparin Sodium) 5,000 units SUBCUT Q8H ON LICENSE OF [facility] Last Admin: 03/15/19 08:28 Dose: 5,000 units Hydralazine HCl (Apresoline) 75 mg PO TID ON LICENSE OF [facility] Last Admin: 03/15/19 06:34 Dose: 75 mg Levalbuterol HCl (Xopenex) 1.25 mg NEB Q6H PRN PRN Reason: Shortness of Breath Levothyroxine Sodium (Synthroid) 100 mcg PO ACBREAKFAST ON LICENSE OF [facility] Last Admin: 03/15/19 06:35 Dose: 100 mcg Metoprolol Tartrate (Lopressor) 25 mg PO BID ON LICENSE OF [facility] Last Admin: 03/15/19 08:27 Dose: 25 mg Discontinued Medications Aspirin (Aspirin) 324 mg PO ONETIME ONE Stop: 03/14/19 18:43 Last Admin: 03/14/19 19:49 Dose: 324 mg Morphine Sulfate (Morphine) 4 mg IVPUSH ONETIME ONE Stop: 03/14/19 19:48 Last Admin: 03/14/19 19:54 Dose: 4 mg Morphine Sulfate (Morphine) Confirm Administered Dose 4 mg .ROUTE .STK-MED ONE Stop: 03/14/19 19:47 Last Admin: 03/14/19 19:56 Dose: Not Given Morphine Sulfate (Morphine) 4 mg IVPUSH ONETIME ONE Stop: 03/14/19 21:25 Last Admin: 03/14/19 21:42 Dose: 4 mg Nitroglycerin (Nitrostat) 0.4 mg SL Q5M PRN PRN Reason: Chest Pain Ondansetron HCl (Zofran) 4 mg IVPUSH ONETIME ONE Stop: 03/14/19 19:47 Last Admin: 03/14/19 19:50 Dose: 4 mg Ondansetron HCl (Zofran) Confirm Administered Dose 4 mg .ROUTE .STK-MED ONE Stop: 03/14/19 19:47 Last Admin: 03/14/19 19:56 Dose: Not Given Ondansetron HCl (Zofran) 4 mg IVPUSH ONETIME ONE Stop: 03/14/19 21:25 Last Admin: 03/14/19 21:43 Dose: 4 mg - Exam General: Alert, Oriented, Cooperative, No Acute Distress Lungs: Clear to Auscultation, Normal Respiratory Effort Cardiovascular: Regular Rate, Regular Rhythm GI/Abdominal Exam: Normal Bowel Sounds, Soft, Non-Tender Extremities: Normal Inspection, Normal Range of Motion, Non-Tender Wound/Incisions: Dressing Dry and Intact (R lower extremity). No: Erythema Psy/Mental Status: Alert, Normal Affect, Normal Mood Sepsis Event Note - Evaluation Sepsis Screening Result: No Definite Risk - Focused Exam Vital Signs: Vital Signs Temp Pulse Pulse Resp BP BP Pulse Ox 03/15/19 08:27 87 104/51 L 03/15/19 08:25 97 104/51 L 03/15/19 07:00 98.0 F 87 18 104/51 L 93 L 03/15/19 06:34 121/59 L 03/15/19 03:43 97.6 F 87 18 119/56 L 91 L 03/15/19 00:50 03/14/19 22:00 20 90 L 03/14/19 21:55 98.5 F 83 20 121/56 L 88 L Pulse Ox 03/15/19 08:27 03/15/19 08:25 03/15/19 07:00 03/15/19 06:34 03/15/19 03:43 03/15/19 00:50 91 L 03/14/19 22:00 03/14/19 21:55 Date Exam was Performed: 03/15/19 Time Exam was Performed: 11:20 - Problem List & Annotations (1) Chest pain SNOMED Code(s): 47157118 Code(s): R07.9 - CHEST PAIN, UNSPECIFIED Status: Acute Current Visit: Yes (2) COPD (chronic obstructive pulmonary disease) SNOMED Code(s): 25785926 Code(s): J44.9 - CHRONIC OBSTRUCTIVE PULMONARY DISEASE, UNSPECIFIED Status : Chronic Current Visit: Yes (3) History of lobectomy of lung SNOMED Code(s): 44478916029961793 Code(s): Z90.2 - ACQUIRED ABSENCE OF LUNG [PART OF] Status: Chronic Current Visit: Yes (4) CKD (chronic kidney disease) SNOMED Code(s): 833384705 Code(s): N18.9 - CHRONIC KIDNEY DISEASE, UNSPECIFIED Status: Chronic Current Visit: Yes (5) HTN (hypertension) SNOMED Code(s): 57068906 Code(s): I10 - ESSENTIAL (PRIMARY) HYPERTENSION Status: Chronic Current Visit: Yes Qualifiers: Hypertension type: essential hypertension Qualified Code(s): I10 - Essential (primary) hypertension (6) Wound of lower extremity SNOMED Code(s): 622055823, 629589740 Code(s): S81.809A - UNSPECIFIED OPEN WOUND, UNSPECIFIED LOWER LEG, INIT ENCNTR Status: Chronic Current Visit: Yes Qualifiers: Encounter type: subsequent encounter Laterality: right Qualified Code(s) : S81.801D - Unspecified open wound, right lower leg, subsequent encounter - Problem List Review Problem List Initiated/Reviewed/Updated: Yes - Plan Plan:: 78 yo female who presents with chest pain. 1. Chest pain: Continued with deep breathing this morning. Monitored on telemetry with no changes noted and trended cardiac enzymes, which have been negative x 2. D-dimer is elevated but clinical suspicion for VTE is low with low Wells score. Doppler extremities negative and VQ scan ordered for this afternoon. Requiring oxygen, sating 93% on 2.5 L NC. No home O2 use. Leukocytosis elevated slightly overnight. Will obtaine dCT of chest without contrast to rule out pneumonia. Also obtained UA 2. COPD: No wheezing heard, continue home inhalers. 3. HTN: Blood pressures on the softer side. Monitor. Held this mornings dose of Cardizem. Metoprolol continued. VTE prophylaxis: Heparin Dispo: 1-2 days pending further diagnostic testing.
--- NOTE | 2019-03-15 09:37 | US ---
Bilateral lower extremity deep venous ultrasound: Duplex and color Doppler evaluation was obtained of the right and left common femoral, superficial femoral, popliteal, posterior tibial and anterior tibial veins. Findings: Normal compression and color Doppler evaluation is noted. Impression: 1. No evidence of deep venous thrombosis within the right or left lower extremities. Diagnostic code #1 This report was dictated in [place] Standard Time
[2019-03-15] MEDS ORDERED: Levalbuterol HCl 1.25 MG/3 ML Neb NEB PRN (11:00)
[2019-03-15] MEDS: hydrALAZINE 25 MG Tab PO SCH ×3 (11:29→22:09)
--- NOTE | 2019-03-15 14:58 | CT ---
CT chest Technique: Multiple axial sections were obtained from above the lung apices inferiorly through the lung bases. Intravenous contrast not utilized. Comparison: Prior chest x-ray performed on 03/14/19. Findings: Calcified right breast prosthesis is noted. Atherosclerotic calcification is noted within the thoracic aorta. Pulmonary arteries are generous in size believed to be of no acute significance. Small mediastinal lymph nodes are seen most likely relating to old inflammatory process. No pericardial thickening is seen. Heart is mildly enlarged. Small left-sided pleural effusion is seen. Slight atelectasis is seen within both lung bases. No other acute parenchymal process is seen. Bone window settings were reviewed which shows no acute osseous finding. Impression: 1. Mild cardiomegaly. Small left-sided pleural effusion. 2. Mild bibasilaratelectasis. No acute parenchymal process is seen. 3. Other findings believed to be incidental. Diagnostic code #2 This report was dictated in [place] Standard Time
[2019-03-15] MEDS: cefTRIAXone 1 GM in Premix Bag 1 BAG IV SCH (15:45)
--- NOTE | 2019-03-15 16:12 | NM ---
Ventilation/perfusion lung scan Technique: 2.1 mCi of technetium 99m MAA was given intravenously. Scintigraphic imaging then obtained over both lungs. 40.2 mCi of technetium 99m DTPA was aerosolized and patient inhaled the mixture. Continued scintigraphic imaging was performed over both lungs. Findings: Perfusion defects are seen within the left lung base. These appear matched between between perfusion and ventilation. Activity within the right lung is near-normal. No mismatch defects are seen. Impression: 1. Low probability for pulmonary embolism. Diagnostic code #2 This report was dictated in [place] Standard Time
[2019-03-15] MEDS: Furosemide 40 MG Tab PO SCH (17:08)
--- NOTE | 2019-03-15 18:39 | CR ---
Indication: Pain, arthritis, injury Technique: Three views of the left shoulder Comparison: None Findings/Impression: 1. There is no fracture or intrinsic bone lesion. 2. The glenohumeral joint is anatomically aligned and demonstrates no significant joint space narrowing or marginal osteophytosis. 3. There is normal width of the acromiohumeral interval. 4. Mild degenerative changes are suggested at the acromioclavicular joint. Dictated by Domingo Beltrán MD @ Mar 15 2019 6:38PM Signed by Dr. Domingo Beltrán @ Mar 15 2019 6:38PM
[2019-03-15] MEDS: Budesonide/Formoterol 160-4.5 MCG/Puff 6 GM Inhaler INH SCH (20:34)
[2019-03-15] MEDS ORDERED: Gabapentin 100 MG Cap PO SCH (21:00)
[2019-03-15] MEDS: Metoprolol Tartrate 25 MG Tab PO SCH (22:09)
[2019-03-15] MEDS ORDERED: Diltiazem 25 MG/5 ML SDV IVPUSH ONE (23:44)
[2019-03-16] MEDS: Heparin Sodium 5,000 Units/ML Vial SUBCUT SCH ×3 (00:13→15:22)
[2019-03-16] MEDS ORDERED: Diltiazem 25 MG/5 ML SDV IVPUSH PRN (01:23)
[2019-03-16] MEDS: hydrALAZINE 25 MG Tab PO SCH ×3 (05:18→21:58)
[2019-03-16 06:45] LABS: CARBON DIOXIDE,CO2 22.4 mmol/L (21.0-32.0); POTASSIUM,K 4.4 mmol/L (3.5-5.1)
[2019-03-16] MEDS: LEVOTHYROXINE 100 MCG PO SCH (07:05)
[2019-03-16] MEDS: Furosemide 40 MG Tab PO SCH ×2 (08:41→09:09)
[2019-03-16] MEDS ORDERED: Gabapentin 100 MG Cap PO SCH (08:59)
[2019-03-16] MEDS: Metoprolol Tartrate 25 MG Tab PO SCH ×3 (09:07→20:23)
[2019-03-16] MEDS: Diltiazem 120 MG Cap.CD PO SCH (09:08)
[2019-03-16] MEDS: Budesonide/Formoterol 160-4.5 MCG/Puff 6 GM Inhaler INH SCH ×2 (09:15→20:27)
[2019-03-16] MEDS ORDERED: Sodium Chloride 0.9% 1,000 ML IV SCH (10:15)
--- NOTE | 2019-03-16 11:31 | PCM.PN ---
- General Info Date of Service: 03/16/19 Admission Dx/Problem (Free Text): Admission Diagnosis/Problem Admission Diagnosis/Problem Chest pain Subjective Update: Reports mid L shoulder pain, but this is improveing. Tylenol helps. reports dyspnea intermittently, no chest pain. Still requiring 2 L NC to keep sats 88%. Denies cough or fever. Functional Status: Reports: Pain Controlled, Tolerating Diet, Ambulating - Review of Systems General: Reports: No Symptoms HEENT: Reports: No Symptoms Pulmonary: Reports: Shortness of Breath. Denies: Cough, Sputum, Wheezing Cardiovascular: Reports: Dyspnea on Exertion. Denies: Chest Pain, Edema Gastrointestinal: Reports: No Symptoms. Denies: Abdominal Pain, Nausea, Vomiting Genitourinary: Reports: No Symptoms. Denies: Dysuria, Frequency Musculoskeletal: Reports: No Symptoms. Denies: Neck Pain, Arm Pain Skin: Reports: No Symptoms Neurological: Reports: No Symptoms Psychiatric: Reports: No Symptoms - Patient Data Vitals - Most Recent: Last Vital Signs Temp 98.1 F 03/16/19 08:00 Pulse 109 H 03/16/19 08:00 Resp 22 H 03/16/19 08:00 BP 113/65 03/16/19 08:00 Pulse Ox 92 L 03/16/19 08:00 Weight - Most Recent: 78.4 kg I&O - Last 24 Hours: Intake & Output 03/15/19 03/16/19 03/16/19 22:59 06:59 14:59 Intake Total 750 550 Output Total 250 500 Balance 500 50 Lab Results Last 24 Hours: Laboratory Results - last 24 hr 03/15/19 03/16/19 03/16/19 Range/Units 12:40 06:00 06:00 WBC 8.03 (4.0-11.0) K/uL RBC 5.02 (4.30-5.90) M/uL Hgb 15.5 (12.0-16.0) g/dL Hct 47.9 H (36.0-46.0) % MCV 95.4 (80.0-98.0) fL MCH 30.9 (27.0-32.0) pg MCHC 32.4 (31.0-37.0) g/dL RDW Std Deviation 60.9 (28.0-62.0) fl RDW Coeff of Marco Antonio 18 H (11.0-15.0) % Plt Count 234 (150-400) K/uL MPV 10.70 (7.40-12.00) fL Neut % (Auto) 67.9 (48.0-80.0) % Lymph % (Auto) 16.2 (16.0-40.0) % Starr % (Auto) 12.1 (0.0-15.0) % Eos % (Auto) 3.6 (0.0-7.0) % Baso % (Auto) 0.2 (0.0-1.5) % Neut # (Auto) 5.5 (1.4-5.7) K/uL Lymph # (Auto) 1.3 (0.6-2.4) K/uL Starr # (Auto) 1.0 H (0.0-0.8) K/uL Eos # (Auto) 0.3 (0.0-0.7) K/uL Baso # (Auto) 0.0 (0.0-0.1) K/uL Nucleated RBC % 0.0 /100WBC Nucleated RBCs # 0 K/uL Sodium 134 L (136-145) mmol/L Potassium 4.4 (3.5-5.1) mmol/L Chloride 100 (98-107) mmol/L Carbon Dioxide 22.4 (21.0-32.0) mmol/L BUN 57 H (7.0-18.0) mg/dL Creatinine 2.9 H (0.6-1.0) mg/dL Est Cr Clr Drug Dosing 14.03 mL/min Estimated GFR (MDRD) 15.7 ml/min Glucose 113 H (74-106) mg/dL Calcium 9.3 (8.5-10.1) mg/dL Urine Color YELLOW Urine Appearance CLEAR Urine pH 5.5 (5.0-8.0) Ur Specific Early >= 1.030 (1.001-1.035) Urine Protein 100 H (NEGATIVE) mg/dL Urine Glucose (UA) NEGATIVE (NEGATIVE) mg/dL Urine Ketones NEGATIVE (NEGATIVE) mg/dL Urine Occult Blood NEGATIVE (NEGATIVE) Urine Nitrite NEGATIVE (NEGATIVE) Urine Bilirubin SMALL H (NEGATIVE) Urine Ictotest NEGATIVE Urine Urobilinogen 1.0 (<2.0) EU/dL Ur Leukocyte Esterase SMALL H (NEGATIVE) Urine RBC 0-1 (0-2/HPF) Urine WBC 4-8 (0-5/HPF) Ur Epithelial Cells MODERATE (NONE-FEW) Urine Bacteria RARE (NEGATIVE) Med Orders - Current: Current Medications Acetaminophen (Tylenol) 650 mg PO Q6H PRN PRN Reason: Pain Last Admin: 03/15/19 17:08 Dose: 650 mg Diltiazem HCl (Diltiazem) 10 mg IVPUSH Q3H PRN PRN Reason: Tachycardia Last Admin: 03/16/19 01:52 Dose: 10 mg Heparin Sodium (Porcine) (Heparin Sodium) 5,000 units SUBCUT Q8H [facility] Last Admin: 03/16/19 08:41 Dose: 5,000 units Ceftriaxone Sodium/Dextrose 1 (gm/ Premix) 50 mls @ 100 mls/hr IV Q24H [facility] Last Admin: 03/15/19 15:45 Dose: 100 mls/hr Sodium Chloride (Normal Saline) 1,000 mls @ 50 mls/hr IV Q20H [facility] Stop: 03/17/19 06:14 Last Admin: 03/16/19 10:25 Dose: 50 mls/hr Levothyroxine Sodium (Synthroid) 100 mcg PO ACBREAKFAST [facility] Last Admin: 03/16/19 07:05 Dose: 100 mcg Budesonide/Formoterol 160-4.5 Mcg/Puff 6 Gm Inhaler 0 each INH BID [facility] Last Admin: 03/16/19 09:15 Dose: 2 each Albuterol 6.7 Gm (Inhaler) 0 each INH Q4H PRN PRN Reason: Wheezing Hydralazine 25 Mg (Tab) 75 each PO TID [facility] Last Admin: 03/16/19 05:18 Dose: Not Given Levalbuterol Hcl 1. (25 Mg/3 Ml Neb) 1.25 each NEB Q6H PRN PRN Reason: Shortness of Breath Diltiazem 120 Mg Cap (.Cd) 1 each PO DAILY [facility] Last Admin: 03/16/19 09:08 Dose: 1 each Furosemide 40 Mg Tab 1 each PO DAILY [facility] Last Admin: 03/16/19 09:09 Dose: Not Given Gabapentin 100 Mg (Cap) 4 each PO BEDTIME [facility] Metoprolol Tartrate (25 Mg Tab) 1 each PO BID [facility] Last Admin: 03/16/19 09:07 Dose: 1 each Discontinued Medications Albuterol (Proventil Hfa) 0 gm INH Q4H PRN PRN Reason: Wheezing Aspirin (Aspirin) 324 mg PO ONETIME ONE Stop: 03/14/19 18:43 Last Admin: 03/14/19 19:49 Dose: 324 mg Budesonide/Formoterol Fumarate (Symbicort 160-4.5 Mcg) 0 gm INH BID [facility] Last Admin: 03/15/19 08:39 Dose: 2 puff Diltiazem HCl (Cardizem Cd) 120 mg PO DAILY [facility] Last Admin: 03/15/19 08:25 Dose: Not Given Diltiazem HCl (Diltiazem) 10 mg IVPUSH ONETIME ONE Stop: 03/15/19 23:45 Last Admin: 03/16/19 00:02 Dose: 10 mg Furosemide (Lasix) 40 mg PO DAILY [facility] Last Admin: 03/16/19 08:41 Dose: 40 mg Gabapentin (Neurontin) 400 mg PO BEDTIME [facility] Last Admin: 03/15/19 21:58 Dose: 400 mg Hydralazine HCl (Apresoline) 75 mg PO TID [facility] Last Admin: 03/15/19 06:34 Dose: 75 mg Levalbuterol HCl (Xopenex) 1.25 mg NEB Q6H PRN PRN Reason: Shortness of Breath Last Admin: 03/15/19 15:54 Dose: 1.25 mg Metoprolol Tartrate (Lopressor) 25 mg PO BID [facility] Last Admin: 03/15/19 08:27 Dose: 25 mg Morphine Sulfate (Morphine) 4 mg IVPUSH ONETIME ONE Stop: 03/14/19 19:48 Last Admin: 03/14/19 19:54 Dose: 4 mg Morphine Sulfate (Morphine) Confirm Administered Dose 4 mg .ROUTE .STK-MED ONE Stop: 03/14/19 19:47 Last Admin: 03/14/19 19:56 Dose: Not Given Morphine Sulfate (Morphine) 4 mg IVPUSH ONETIME ONE Stop: 03/14/19 21:25 Last Admin: 03/14/19 21:42 Dose: 4 mg Nitroglycerin (Nitrostat) 0.4 mg SL Q5M PRN PRN Reason: Chest Pain Ondansetron HCl (Zofran) 4 mg IVPUSH ONETIME ONE Stop: 03/14/19 19:47 Last Admin: 03/14/19 19:50 Dose: 4 mg Ondansetron HCl (Zofran) Confirm Administered Dose 4 mg .ROUTE .STK-MED ONE Stop: 03/14/19 19:47 Last Admin: 03/14/19 19:56 Dose: Not Given Ondansetron HCl (Zofran) 4 mg IVPUSH ONETIME ONE Stop: 03/14/19 21:25 Last Admin: 03/14/19 21:43 Dose: 4 mg Diltiazem 120 Mg Cap (.Cd) 120 each PO DAILY [facility] Last Admin: 03/15/19 11:29 Dose: Not Given Metoprolol Tartrate (25 Mg Tab) 25 each PO BID [facility] Last Admin: 03/16/19 09:27 Dose: Not Given - Exam General: Alert, Oriented, Cooperative, No Acute Distress Lungs: Clear to Auscultation, Normal Respiratory Effort Cardiovascular: Regular Rate, Regular Rhythm GI/Abdominal Exam: Normal Bowel Sounds, Soft, Non-Tender Extremities: Normal Inspection, Normal Range of Motion, Non-Tender, No Pedal Edema Neurological: No New Focal Deficit Psy/Mental Status: Alert, Normal Affect, Normal Mood Sepsis Event Note - Evaluation Sepsis Screening Result: No Definite Risk - Focused Exam Vital Signs: Vital Signs Temp Pulse Resp BP Pulse Ox 03/16/19 08:00 98.1 F 109 H 22 H 113/65 92 L 03/15/19 23:45 97.9 F 114 H 20 126/56 L 88 L Date Exam was Performed: 03/16/19 Time Exam was Performed: 11:32 - Problem List & Annotations (1) Chest pain SNOMED Code(s): 07433311 Code(s): R07.9 - CHEST PAIN, UNSPECIFIED Status: Resolved Current Visit: Yes (2) COPD (chronic obstructive pulmonary disease) SNOMED Code(s): 53857446 Code(s): J44.9 - CHRONIC OBSTRUCTIVE PULMONARY DISEASE, UNSPECIFIED Status : Chronic Current Visit: Yes (3) History of lobectomy of lung SNOMED Code(s): 01197328103240047 Code(s): Z90.2 - ACQUIRED ABSENCE OF LUNG [PART OF] Status: Chronic Current Visit: Yes (4) CKD (chronic kidney disease) SNOMED Code(s): 729231087 Code(s): N18.9 - CHRONIC KIDNEY DISEASE, UNSPECIFIED Status: Chronic Current Visit: Yes Qualifiers: Chronic kidney disease stage: stage 4 (severe) Qualified Code(s): N18.4 - Chronic kidney disease, stage 4 (severe) (5) HTN (hypertension) SNOMED Code(s): 75229891 Code(s): I10 - ESSENTIAL (PRIMARY) HYPERTENSION Status: Chronic Current Visit: Yes Qualifiers: Hypertension type: essential hypertension Qualified Code(s): I10 - Essential (primary) hypertension (6) Wound of lower extremity SNOMED Code(s): 577973693, 107259480 Code(s): S81.809A - UNSPECIFIED OPEN WOUND, UNSPECIFIED LOWER LEG, INIT ENCNTR Status: Chronic Current Visit: Yes Qualifiers: Encounter type: subsequent encounter Laterality: right Qualified Code(s) : S81.801D - Unspecified open wound, right lower leg, subsequent encounter (7) Diastolic heart failure SNOMED Code(s): 305638358 Code(s): I50.30 - UNSPECIFIED DIASTOLIC (CONGESTIVE) HEART FAILURE Status: Chronic Current Visit: Yes Qualifiers: Heart failure chronicity: chronic Qualified Code(s): I50.32 - Chronic diastolic (congestive) heart failure - Problem List Review Problem List Initiated/Reviewed/Updated: Yes - My Orders Last 24 Hours: My Active Orders 03/15/19 11:54 Resuscitation Status Routine 03/15/19 12:40 CULTURE URINE [RM] Routine 03/15/19 15:30 cefTRIAXone [Rocephin in Dextrose,Iso-Osm 1 GM/50 ML] 1 gm Premix Bag 1 bag IV Q24H 03/15/19 16:21 IS (RT) [RT Incentive Spirometry] [RC] Q1HWA 03/16/19 08:59 Patient's Own Medication [Ptom] 4 each PO BEDTIME 03/16/19 09:00 Patient's Own Medication [Ptom] 1 each PO DAILY 03/16/19 10:15 Sodium Chloride 0.9% [Normal Saline] 1,000 ml IV Q20H 03/17/19 05:11 BMP [BASIC METABOLIC PANEL,BMP] [CHEM] AM CBC WITH AUTO DIFF [HEME] AM 03/18/19 05:11 BMP [BASIC METABOLIC PANEL,BMP] [CHEM] AM CBC WITH AUTO DIFF [HEME] AM - Plan Plan:: 78 yo female who presents with chest pain. 1. Chest pain: ACS resolved, likely secondary to musculoskeletal. 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 CT of chest shows small L pleural effusion and bibasilar atelectasis. No fevers or Leukocytosis. VQ scan negative for PE. 2. COPD: No wheezing heard, continue home inhalers. On DC from [facility] it was determined no oxygen was needed, no vital signs listed. 3. MAGDALENO on CKD: BUN Cr elevating, last BUN Cr from [facility] was 57 and 2.5 respectively. Will give gentle IVF today and recheck in am. Does not look fluid overloaded, no edema, no JVD. 3. HTN: Continue Metoprolol and Diltiazem. HR elevated last evening as Metoprolol was held. VTE prophylaxis: Heparin Dispo: 1-2 days pending further diagnostic testing.
[2019-03-16] MEDS: cefTRIAXone 1 GM in Premix Bag 1 BAG IV SCH (15:21)
[2019-03-17] MEDS: Heparin Sodium 5,000 Units/ML Vial SUBCUT SCH ×3 (00:14→15:27)
[2019-03-17] MEDS: Acetaminophen 325 MG Tab PO PRN (00:21)
[2019-03-17] MEDS: hydrALAZINE 25 MG Tab PO SCH ×2 (06:05→16:51)
[2019-03-17] MEDS: LEVOTHYROXINE 100 MCG PO SCH (06:41)
[2019-03-17 06:55] LABS: CARBON DIOXIDE,CO2 24.5 mmol/L (21.0-32.0); POTASSIUM,K 4.3 mmol/L (3.5-5.1)
[2019-03-17] MEDS: Diltiazem 120 MG Cap.CD PO SCH (08:34)
[2019-03-17] MEDS: Metoprolol Tartrate 25 MG Tab PO SCH (08:35)
[2019-03-17] MEDS: Furosemide 40 MG Tab PO SCH (08:36)
[2019-03-17] MEDS: Budesonide/Formoterol 160-4.5 MCG/Puff 6 GM Inhaler INH SCH (08:53)
[2019-03-17 14:27] LABS: HEMOGLOBIN A1C 6.7 % (4.5-6.2)
[2019-03-17 15:27] VITALS: BP 116/46; PULSE 70
[2019-03-17] MEDS: cefTRIAXone 1 GM in Premix Bag 1 BAG IV SCH (15:27)
--- NOTE | 2019-03-17 17:44 | PCM.DCSUM1 ---
Addendum entered and electronically signed by Christopher Manning MD 03/21/19 08:14 : Discharge Summary - Hospital Course Free Text/Narrative:: PT. REQUIRES LONG TERM TO EVALUATE MEDICATIONS AFTER RECENT HOSPITALIZATIONS; REQUIRES PHYSICAL THERAPY DUE TO DECONDITIONING AND RECENT HOSPITALIZATIONS. NURSING TO ASSESS WOUND OF LOWER EXTREMITY. PATIENT IS HOMEBOUND; REQUIRES ASSISTANCE OF CAREGIVER AND DEVICE TO LEAVE HOME. DR SAVAGE WILL FOLLOW HOME HEALTH CARE PLAN. - Discharge Data Discharge Date: 03/17/19 Discharge Disposition: Home, Self-Care 01 Condition: Good - Referral to Home Health Primary Care Physician: Radha Savage MD - Patient Instructions Diet: Low Sodium Notify Provider of: Fever, Increased Pain, Swelling and Redness, Nausea and/or Vomiting Other/Special Instructions: PLEASE FOLLOW UP WITH YOU LUNG AND KIDNEY DOCTORS. PLEASE DO NOT USE OTC NSAIDS INCLUDING IBUPROFEN, MOTRIN OR NAPROXEN. ONLY USE TYLENOL IF NEEDED. FOLLOW UP WITH YOUR PCP. THERE IS ALSO SOME CONCERN YOU MIGHT HAVE DIABETES; PLEASE FOLLOW UP WITH YOUR PCP TO DISCUSS MEDICATIONS YOU ALSO HAVE KIDNEY DISEASE - Discharge Plan Prescriptions/Med Rec: Ciprofloxacin HCl 500 mg PO BID 5 Days #20 tablet Home Medications: Home Meds Albuterol Sulfate [Albuterol Sulfate Hfa] 2 puff INH Q4H PRN 03/14/19 [History] Allopurinol [Zyloprim] 100 mg PO DAILY 03/14/19 [History] Budesonide/Formoterol Fumarate [Symbicort 160-4.5 Mcg Inhaler] 2 inh INH BID 04/02 [History] Colchicine 0.6 mg PO DAILY PRN 03/14/19 [History] Cyanocobalamin (Vitamin B-12) [Cyanocobalamin Injection] 1,000 mcg IJ Q14D 03/14 [History] Diltiazem HCl [Diltiazem 24Hr ER] 120 mg PO DAILY 03/14/19 [History] Famotidine [Pepcid] 10 mg PO DAILY PRN 03/14/19 [History] Furosemide 40 mg PO DAILY 03/14/19 [History] Gabapentin [Neurontin] 400 mg PO BEDTIME 03/14/19 [History] Levalbuterol HCl 1.25 mg NEB Q6HR PRN 03/14/19 [History] Levothyroxine [Synthroid] 100 mcg PO ACBREAKFAST 03/14/19 [History] Metoprolol Tartrate 25 mg PO BID 03/14/19 [History] Potassium Chloride [Klor-Con M20] 20 meq PO DAILY 03/14/19 [History] diphenhydrAMINE [Benadryl] 25 mg PO BID PRN 03/14/19 [History] hydrALAZINE [Apresoline] 75 mg PO TID 03/14/19 [History] Acetaminophen [Tylenol] 650 mg PO Q6H PRN tablet 03/17/19 [Rx] Ciprofloxacin HCl 500 mg PO BID 5 Days #20 tablet 03/17/19 [Rx] Oxygen Therapy Mode: Nasal Cannula Oxygen Flow Rate (L/min): 2 Patient Handouts: Nonspecific Chest Pain, [id number], Chronic Kidney Disease , Adult, Ciprofloxacin tablets Referrals: [facility] [Outside] Radha Savage MD [Primary Care Provider] - 03/27/19 10:00 am - Discharge Summary/Plan Comment DC Time >30 min.: No - Patient Data Vitals - Most Recent: Last Vital Signs Temp 97.8 F 03/17/19 15:26 Pulse 70 03/17/19 15:26 Resp 20 03/17/19 15:26 BP 116/46 L 03/17/19 15:26 Pulse Ox 88 L 03/17/19 15:26 Weight - Most Recent: 172 lb 13.478 oz Med Orders - Current: Current Medications Discontinued Medications Acetaminophen (Tylenol) 650 mg PO Q6H PRN PRN Reason: Pain Last Admin: 03/17/19 00:21 Dose: 650 mg Albuterol (Proventil Hfa) 0 gm INH Q4H PRN PRN Reason: Wheezing Aspirin (Aspirin) 324 mg PO ONETIME ONE Stop: 03/14/19 18:43 Last Admin: 03/14/19 19:49 Dose: 324 mg Budesonide/Formoterol Fumarate (Symbicort 160-4.5 Mcg) 0 gm INH BID [facility] Last Admin: 03/15/19 08:39 Dose: 2 puff Diltiazem HCl (Cardizem Cd) 120 mg PO DAILY [facility] Last Admin: 03/15/19 08:25 Dose: Not Given Diltiazem HCl (Diltiazem) 10 mg IVPUSH ONETIME ONE Stop: 03/15/19 23:45 Last Admin: 03/16/19 00:02 Dose: 10 mg Diltiazem HCl (Diltiazem) 10 mg IVPUSH Q3H PRN PRN Reason: Tachycardia Last Admin: 03/16/19 01:52 Dose: 10 mg Furosemide (Lasix) 40 mg PO DAILY [facility] Last Admin: 03/16/19 08:41 Dose: 40 mg Gabapentin (Neurontin) 400 mg PO BEDTIME [facility] Last Admin: 03/15/19 21:58 Dose: 400 mg Heparin Sodium (Porcine) (Heparin Sodium) 5,000 units SUBCUT Q8H [facility] Last Admin: 03/17/19 15:27 Dose: 5,000 units Hydralazine HCl (Apresoline) 75 mg PO TID [facility] Last Admin: 03/15/19 06:34 Dose: 75 mg Ceftriaxone Sodium/Dextrose 1 (gm/ Premix) 50 mls @ 100 mls/hr IV Q24H [facility] Last Admin: 03/17/19 15:27 Dose: 100 mls/hr Sodium Chloride (Normal Saline) 1,000 mls @ 50 mls/hr IV Q20H [facility] Stop: 03/17/19 06:14 Last Admin: 03/16/19 10:25 Dose: 50 mls/hr Levalbuterol HCl (Xopenex) 1.25 mg NEB Q6H PRN PRN Reason: Shortness of Breath Last Admin: 03/15/19 15:54 Dose: 1.25 mg Levothyroxine Sodium (Synthroid) 100 mcg PO ACBREAKFAST [facility] Last Admin: 03/17/19 06:41 Dose: 100 mcg Metoprolol Tartrate (Lopressor) 25 mg PO BID [facility] Last Admin: 03/15/19 08:27 Dose: 25 mg Morphine Sulfate (Morphine) 4 mg IVPUSH ONETIME ONE Stop: 03/14/19 19:48 Last Admin: 03/14/19 19:54 Dose: 4 mg Morphine Sulfate (Morphine) Confirm Administered Dose 4 mg .ROUTE .STK-MED ONE Stop: 03/14/19 19:47 Last Admin: 03/14/19 19:56 Dose: Not Given Morphine Sulfate (Morphine) 4 mg IVPUSH ONETIME ONE Stop: 03/14/19 21:25 Last Admin: 03/14/19 21:42 Dose: 4 mg Nitroglycerin (Nitrostat) 0.4 mg SL Q5M PRN PRN Reason: Chest Pain Ondansetron HCl (Zofran) 4 mg IVPUSH ONETIME ONE Stop: 03/14/19 19:47 Last Admin: 03/14/19 19:50 Dose: 4 mg Ondansetron HCl (Zofran) Confirm Administered Dose 4 mg .ROUTE .STK-MED ONE Stop: 03/14/19 19:47 Last Admin: 03/14/19 19:56 Dose: Not Given Ondansetron HCl (Zofran) 4 mg IVPUSH ONETIME ONE Stop: 03/14/19 21:25 Last Admin: 03/14/19 21:43 Dose: 4 mg Budesonide/Formoterol 160-4.5 Mcg/Puff 6 Gm Inhaler 0 each INH BID [facility] Last Admin: 03/17/19 08:53 Dose: 2 each Albuterol 6.7 Gm (Inhaler) 0 each INH Q4H PRN PRN Reason: Wheezing Diltiazem 120 Mg Cap (.Cd) 120 each PO DAILY [facility] Last Admin: 03/15/19 11:29 Dose: Not Given Hydralazine 25 Mg (Tab) 75 each PO TID [facility] Last Admin: 03/17/19 16:51 Dose: Not Given Levalbuterol Hcl 1. (25 Mg/3 Ml Neb) 1.25 each NEB Q6H PRN PRN Reason: Shortness of Breath Metoprolol Tartrate (25 Mg Tab) 25 each PO BID [facility] Last Admin: 03/16/19 09:27 Dose: Not Given Diltiazem 120 Mg Cap (.Cd) 1 each PO DAILY [facility] Last Admin: 03/17/19 08:34 Dose: 1 each Furosemide 40 Mg Tab 1 each PO DAILY [facility] Last Admin: 03/17/19 08:36 Dose: 1 each Gabapentin 100 Mg (Cap) 4 each PO BEDTIME [facility] Last Admin: 03/16/19 20:24 Dose: 4 each Metoprolol Tartrate (25 Mg Tab) 1 each PO BID [facility] Last Admin: 03/17/19 08:35 Dose: 1 each Original Note: <Christopher Manning - Last Filed: 03/21/19 08:11> Discharge Summary - Hospital Course HPI Initial Comments: . Discharge summary Hospital course: Patient is a 78-year-old female significant past medical history of CKD, COPD, hypertension presented with several days of left-sided chest pain, states pain is in her left shoulder and radiates into her sternum endorses pain worsening with deep inspiration. Patient was placed on telemetry and cardiac enzymes were trended resulting in negative troponin. D-dimer was marginally elevated and VQ scan was performed second secondary to history of CKD VQ was also negative;. Patient however is still requiring 2 L of nasal cannula to keep saturation above 88%. It was determined chest pain was most likely musculoskeletal in nature as patient has a amputation of digits of right hand and has been using her left arm more than usual to get in and out of her truck. BUN/creatinine was elevated throughout stay; day prior to discharge patient was put on gentle IV fluid hydration of 50 cc/h; following day repeat chemistries suggest returning back to baseline compared to results from [facility]. Patient did not endorse any plantar discomfort at discharge and was stable. Patient was restarted home medication advised to follow-up with PCP and legal adviser in near future. Patient understood plan. Discharge condition:Stable Disposition:Home - Discharge Data Discharge Date: 03/17/19 Discharge Disposition: Home, Self-Care 01 Condition: Good - Referral to Home Health Primary Care Physician: Radha Savage MD - Patient Instructions Diet: Low Sodium Notify Provider of: Fever, Increased Pain, Swelling and Redness, Nausea and/or Vomiting Other/Special Instructions: PLEASE FOLLOW UP WITH YOU LUNG AND KIDNEY DOCTORS. PLEASE DO NOT USE OTC NSAIDS INCLUDING IBUPROFEN, MOTRIN OR NAPROXEN. ONLY USE TYLENOL IF NEEDED. FOLLOW UP WITH YOUR PCP. THERE IS ALSO SOME CONCERN YOU MIGHT HAVE DIABETES; PLEASE FOLLOW UP WITH YOUR PCP TO DISCUSS MEDICATIONS YOU ALSO HAVE KIDNEY DISEASE - Discharge Plan Prescriptions/Med Rec: Ciprofloxacin HCl 500 mg PO BID 5 Days #20 tablet Home Medications: Home Meds Albuterol Sulfate [Albuterol Sulfate Hfa] 2 puff INH Q4H PRN 03/14/19 [History] Allopurinol [Zyloprim] 100 mg PO DAILY 03/14/19 [History] Budesonide/Formoterol Fumarate [Symbicort 160-4.5 Mcg Inhaler] 2 inh INH BID 04/02 [History] Colchicine 0.6 mg PO DAILY PRN 03/14/19 [History] Cyanocobalamin (Vitamin B-12) [Cyanocobalamin Injection] 1,000 mcg IJ Q14D 03/14 [History] Diltiazem HCl [Diltiazem 24Hr ER] 120 mg PO DAILY 03/14/19 [History] Famotidine [Pepcid] 10 mg PO DAILY PRN 03/14/19 [History] Furosemide 40 mg PO DAILY 03/14/19 [History] Gabapentin [Neurontin] 400 mg PO BEDTIME 03/14/19 [History] Levalbuterol HCl 1.25 mg NEB Q6HR PRN 03/14/19 [History] Levothyroxine [Synthroid] 100 mcg PO ACBREAKFAST 03/14/19 [History] Metoprolol Tartrate 25 mg PO BID 03/14/19 [History] Potassium Chloride [Klor-Con M20] 20 meq PO DAILY 03/14/19 [History] diphenhydrAMINE [Benadryl] 25 mg PO BID PRN 03/14/19 [History] hydrALAZINE [Apresoline] 75 mg PO TID 03/14/19 [History] Acetaminophen [Tylenol] 650 mg PO Q6H PRN tablet 03/17/19 [Rx] Ciprofloxacin HCl 500 mg PO BID 5 Days #20 tablet 03/17/19 [Rx] Oxygen Therapy Mode: Nasal Cannula Oxygen Flow Rate (L/min): 2 Patient Handouts: Nonspecific Chest Pain, [id number], Chronic Kidney Disease , Adult, Ciprofloxacin tablets Referrals: [facility] [Outside] Radha Savage MD [Primary Care Provider] - 03/27/19 10:00 am - Discharge Summary/Plan Comment DC Time >30 min.: No - Patient Data Vitals - Most Recent: Last Vital Signs Temp 97.8 F 03/17/19 15:26 Pulse 70 03/17/19 15:26 Resp 20 03/17/19 15:26 BP 116/46 L 03/17/19 15:26 Pulse Ox 88 L 03/17/19 15:26 Weight - Most Recent: 78.4 kg I&O - Last 24 hours: Intake & Output 03/17/19 03/17/19 03/17/19 06:59 14:59 22:59 Intake Total 1168 600 Output Total 300 400 Balance 868 200 Lab Results - Last 24 hrs: Laboratory Results - last 24 hr 03/17/19 03/17/19 03/17/19 Range/Units 06:00 06:00 06:30 WBC 6.62 (4.0-11.0) K/uL RBC 4.77 (4.30-5.90) M/uL Hgb 14.5 (12.0-16.0) g/dL Hct 45.3 (36.0-46.0) % MCV 95.0 (80.0-98.0) fL MCH 30.4 (27.0-32.0) pg MCHC 32.0 (31.0-37.0) g/dL RDW Std Deviation 61.0 (28.0-62.0) fl RDW Coeff of Marco Antonio 18 H (11.0-15.0) % Plt Count 253 (150-400) K/uL MPV 11.00 (7.40-12.00) fL Neut % (Auto) 65.7 (48.0-80.0) % Lymph % (Auto) 19.0 (16.0-40.0) % [place] % (Auto) 10.7 (0.0-15.0) % Eos % (Auto) 4.4 (0.0-7.0) % Baso % (Auto) 0.2 (0.0-1.5) % Neut # (Auto) 4.4 (1.4-5.7) K/uL Lymph # (Auto) 1.3 (0.6-2.4) K/uL [place] # (Auto) 0.7 (0.0-0.8) K/uL Eos # (Auto) 0.3 (0.0-0.7) K/uL Baso # (Auto) 0.0 (0.0-0.1) K/uL Nucleated RBC % 0.0 /100WBC Nucleated RBCs # 0 K/uL Sodium 137 (136-145) mmol/L Potassium 4.3 (3.5-5.1) mmol/L Chloride 103 (98-107) mmol/L Carbon Dioxide 24.5 (21.0-32.0) mmol/L BUN 62 H (7.0-18.0) mg/dL Creatinine 2.8 H (0.6-1.0) mg/dL Est Cr Clr Drug Dosing 14.53 mL/min Estimated GFR (MDRD) 16.4 ml/min Glucose 91 (74-106) mg/dL Hemoglobin A1c 6.7 H (4.5-6.2) % Calcium 8.7 (8.5-10.1) mg/dL [facility]OR[facility] Results - Last 24 hrs: Microbiology 03/15/19 12:40 Urine Culture - Final Urine, Clean Catch MIXED BAR >100,000 CFU/ML Med Orders - Current: Current Medications Acetaminophen (Tylenol) 650 mg PO Q6H PRN PRN Reason: Pain Last Admin: 03/17/19 00:21 Dose: 650 mg Diltiazem HCl (Diltiazem) 10 mg IVPUSH Q3H PRN PRN Reason: Tachycardia Last Admin: 03/16/19 01:52 Dose: 10 mg Heparin Sodium (Porcine) (Heparin Sodium) 5,000 units SUBCUT Q8H [facility] Last Admin: 03/17/19 15:27 Dose: 5,000 units Ceftriaxone Sodium/Dextrose 1 (gm/ Premix) 50 mls @ 100 mls/hr IV Q24H [facility] Last Admin: 03/17/19 15:27 Dose: 100 mls/hr Levothyroxine Sodium (Synthroid) 100 mcg PO ACBREAKFAST [facility] Last Admin: 03/17/19 06:41 Dose: 100 mcg Budesonide/Formoterol 160-4.5 Mcg/Puff 6 Gm Inhaler 0 each INH BID [facility] Last Admin: 03/17/19 08:53 Dose: 2 each Albuterol 6.7 Gm (Inhaler) 0 each INH Q4H PRN PRN Reason: Wheezing Hydralazine 25 Mg (Tab) 75 each PO TID [facility] Last Admin: 03/17/19 16:51 Dose: Not Given Levalbuterol Hcl 1. (25 Mg/3 Ml Neb) 1.25 each NEB Q6H PRN PRN Reason: Shortness of Breath Diltiazem 120 Mg Cap (.Cd) 1 each PO DAILY [facility] Last Admin: 03/17/19 08:34 Dose: 1 each Furosemide 40 Mg Tab 1 each PO DAILY [facility] Last Admin: 03/17/19 08:36 Dose: 1 each Gabapentin 100 Mg (Cap) 4 each PO BEDTIME [facility] Last Admin: 03/16/19 20:24 Dose: 4 each Metoprolol Tartrate (25 Mg Tab) 1 each PO BID [facility] Last Admin: 03/17/19 08:35 Dose: 1 each Discontinued Medications Albuterol (Proventil Hfa) 0 gm INH Q4H PRN PRN Reason: Wheezing Aspirin (Aspirin) 324 mg PO ONETIME ONE Stop: 03/14/19 18:43 Last Admin: 03/14/19 19:49 Dose: 324 mg Budesonide/Formoterol Fumarate (Symbicort 160-4.5 Mcg) 0 gm INH BID [facility] Last Admin: 03/15/19 08:39 Dose: 2 puff Diltiazem HCl (Cardizem Cd) 120 mg PO DAILY [facility] Last Admin: 03/15/19 08:25 Dose: Not Given Diltiazem HCl (Diltiazem) 10 mg IVPUSH ONETIME ONE Stop: 03/15/19 23:45 Last Admin: 03/16/19 00:02 Dose: 10 mg Furosemide (Lasix) 40 mg PO DAILY [facility] Last Admin: 03/16/19 08:41 Dose: 40 mg Gabapentin (Neurontin) 400 mg PO BEDTIME [facility] Last Admin: 03/15/19 21:58 Dose: 400 mg Hydralazine HCl (Apresoline) 75 mg PO TID [facility] Last Admin: 03/15/19 06:34 Dose: 75 mg Sodium Chloride (Normal Saline) 1,000 mls @ 50 mls/hr IV Q20H [facility] Stop: 03/17/19 06:14 Last Admin: 03/16/19 10:25 Dose: 50 mls/hr Levalbuterol HCl (Xopenex) 1.25 mg NEB Q6H PRN PRN Reason: Shortness of Breath Last Admin: 03/15/19 15:54 Dose: 1.25 mg Metoprolol Tartrate (Lopressor) 25 mg PO BID [facility] Last Admin: 03/15/19 08:27 Dose: 25 mg Morphine Sulfate (Morphine) 4 mg IVPUSH ONETIME ONE Stop: 03/14/19 19:48 Last Admin: 03/14/19 19:54 Dose: 4 mg Morphine Sulfate (Morphine) Confirm Administered Dose 4 mg .ROUTE .STK-MED ONE Stop: 03/14/19 19:47 Last Admin: 03/14/19 19:56 Dose: Not Given Morphine Sulfate (Morphine) 4 mg IVPUSH ONETIME ONE Stop: 03/14/19 21:25 Last Admin: 03/14/19 21:42 Dose: 4 mg Nitroglycerin (Nitrostat) 0.4 mg SL Q5M PRN PRN Reason: Chest Pain Ondansetron HCl (Zofran) 4 mg IVPUSH ONETIME ONE Stop: 03/14/19 19:47 Last Admin: 03/14/19 19:50 Dose: 4 mg Ondansetron HCl (Zofran) Confirm Administered Dose 4 mg .ROUTE .STK-MED ONE Stop: 03/14/19 19:47 Last Admin: 03/14/19 19:56 Dose: Not Given Ondansetron HCl (Zofran) 4 mg IVPUSH ONETIME ONE Stop: 03/14/19 21:25 Last Admin: 03/14/19 21:43 Dose: 4 mg Diltiazem 120 Mg Cap (.Cd) 120 each PO DAILY [facility] Last Admin: 03/15/19 11:29 Dose: Not Given Metoprolol Tartrate (25 Mg Tab) 25 each PO BID [facility] Last Admin: 03/16/19 09:27 Dose: Not Given <Anna Mendez - Last Filed: 03/22/19 12:40> Discharge Summary - Hospital Course HPI Initial Comments: I have seen and evaluated the patient and agree with the residents note unless specified in my note - Referral to Home Health Primary Care Physician: Radha Savage MD - Patient Data Vitals - Most Recent: Last Vital Signs Temp 36.6 C 03/17/19 15:26 Pulse 70 03/17/19 15:26 Resp 20 03/17/19 15:26 BP 116/46 L 03/17/19 15:26 Pulse Ox 88 L 03/17/19 15:26 Med Orders - Current: Current Medications Discontinued Medications Acetaminophen (Tylenol) 650 mg PO Q6H PRN PRN Reason: Pain Last Admin: 03/17/19 00:21 Dose: 650 mg Albuterol (Proventil Hfa) 0 gm INH Q4H PRN PRN Reason: Wheezing Aspirin (Aspirin) 324 mg PO ONETIME ONE Stop: 03/14/19 18:43 Last Admin: 03/14/19 19:49 Dose: 324 mg Budesonide/Formoterol Fumarate (Symbicort 160-4.5 Mcg) 0 gm INH BID [facility] Last Admin: 03/15/19 08:39 Dose: 2 puff Diltiazem HCl (Cardizem Cd) 120 mg PO DAILY [facility] Last Admin: 03/15/19 08:25 Dose: Not Given Diltiazem HCl (Diltiazem) 10 mg IVPUSH ONETIME ONE Stop: 03/15/19 23:45 Last Admin: 03/16/19 00:02 Dose: 10 mg Diltiazem HCl (Diltiazem) 10 mg IVPUSH Q3H PRN PRN Reason: Tachycardia Last Admin: 03/16/19 01:52 Dose: 10 mg Furosemide (Lasix) 40 mg PO DAILY [facility] Last Admin: 03/16/19 08:41 Dose: 40 mg Gabapentin (Neurontin) 400 mg PO BEDTIME [facility] Last Admin: 03/15/19 21:58 Dose: 400 mg Heparin Sodium (Porcine) (Heparin Sodium) 5,000 units SUBCUT Q8H [facility] Last Admin: 03/17/19 15:27 Dose: 5,000 units Hydralazine HCl (Apresoline) 75 mg PO TID [facility] Last Admin: 03/15/19 06:34 Dose: 75 mg Ceftriaxone Sodium/Dextrose 1 (gm/ Premix) 50 mls @ 100 mls/hr IV Q24H [facility] Last Admin: 03/17/19 15:27 Dose: 100 mls/hr Sodium Chloride (Normal Saline) 1,000 mls @ 50 mls/hr IV Q20H [facility] Stop: 03/17/19 06:14 Last Admin: 03/16/19 10:25 Dose: 50 mls/hr Levalbuterol HCl (Xopenex) 1.25 mg NEB Q6H PRN PRN Reason: Shortness of Breath Last Admin: 03/15/19 15:54 Dose: 1.25 mg Levothyroxine Sodium (Synthroid) 100 mcg PO ACBREAKFAST [facility] Last Admin: 03/17/19 06:41 Dose: 100 mcg Metoprolol Tartrate (Lopressor) 25 mg PO BID [facility] Last Admin: 03/15/19 08:27 Dose: 25 mg Morphine Sulfate (Morphine) 4 mg IVPUSH ONETIME ONE Stop: 03/14/19 19:48 Last Admin: 03/14/19 19:54 Dose: 4 mg Morphine Sulfate (Morphine) Confirm Administered Dose 4 mg .ROUTE .STK-MED ONE Stop: 03/14/19 19:47 Last Admin: 03/14/19 19:56 Dose: Not Given Morphine Sulfate (Morphine) 4 mg IVPUSH ONETIME ONE Stop: 03/14/19 21:25 Last Admin: 03/14/19 21:42 Dose: 4 mg Nitroglycerin (Nitrostat) 0.4 mg SL Q5M PRN PRN Reason: Chest Pain Ondansetron HCl (Zofran) 4 mg IVPUSH ONETIME ONE Stop: 03/14/19 19:47 Last Admin: 03/14/19 19:50 Dose: 4 mg Ondansetron HCl (Zofran) Confirm Administered Dose 4 mg .ROUTE .STK-MED ONE Stop: 03/14/19 19:47 Last Admin: 03/14/19 19:56 Dose: Not Given Ondansetron HCl (Zofran) 4 mg IVPUSH ONETIME ONE Stop: 03/14/19 21:25 Last Admin: 03/14/19 21:43 Dose: 4 mg Budesonide/Formoterol 160-4.5 Mcg/Puff 6 Gm Inhaler 0 each INH BID [facility] Last Admin: 03/17/19 08:53 Dose: 2 each Albuterol 6.7 Gm (Inhaler) 0 each INH Q4H PRN PRN Reason: Wheezing Diltiazem 120 Mg Cap (.Cd) 120 each PO DAILY [facility] Last Admin: 03/15/19 11:29 Dose: Not Given Hydralazine 25 Mg (Tab) 75 each PO TID [facility] Last Admin: 03/17/19 16:51 Dose: Not Given Levalbuterol Hcl 1. (25 Mg/3 Ml Neb) 1.25 each NEB Q6H PRN PRN Reason: Shortness of Breath Metoprolol Tartrate (25 Mg Tab) 25 each PO BID [facility] Last Admin: 03/16/19 09:27 Dose: Not Given Diltiazem 120 Mg Cap (.Cd) 1 each PO DAILY [facility] Last Admin: 03/17/19 08:34 Dose: 1 each Furosemide 40 Mg Tab 1 each PO DAILY [facility] Last Admin: 03/17/19 08:36 Dose: 1 each Gabapentin 100 Mg (Cap) 4 each PO BEDTIME [facility] Last Admin: 03/16/19 20:24 Dose: 4 each Metoprolol Tartrate (25 Mg Tab) 1 each PO BID [facility] Last Admin: 03/17/19 08:35 Dose: 1 each
== END 2019-03-17 18:10 | disposition home or self-care (01) ==
LOC: MW.ED 17:51 → MW.MS 21:21
PROVIDERS: ADMIT Internal Medicine; ATTEND Internal Medicine
DX: R07.2 Precordial pain (principal); I12.9 Hypertensive chronic kidney disease with stage 1 through stage 4 chronic kidney disease, or unspecified chronic kidney disease; N18.9 Chronic kidney disease, unspecified; J44.9 Chronic obstructive pulmonary disease, unspecified; E78.00 Pure hypercholesterolemia, unspecified; K21.9 Gastro-esophageal reflux disease without esophagitis; M19.90 Unspecified osteoarthritis, unspecified site; Z88.5 Allergy status to narcotic agent; Z88.1 Allergy status to other antibiotic agents; Z88.2 Allergy status to sulfonamides
CPT/HCPCS: 36415; 71046; 71250; 73030; 78582; 80048; 80053; 81001; 83036; 83690; 84484; 85025; 85379; 87086; 93005; 93970; 94640; 94664; 96365; 96372; 96374; 96375; 96376; 99285; A9270; A9540; A9567; G0378; J0696; J1644; J2270; J2405; J3490; J7030; J7612; 99283